=== PATIENT | male | born 1940 | race Caucasian/White ===

== ENCOUNTER 2017-06-06 01:44 | Inpatient (IN) | payer MEDICARE ==
[~2017-06-06] VITALS: Ht 172.7 cm; Wt 73.9 kg
[~2017-06-06 01:44] MED LIST: CALC667C4 PO; CALCIUM PO; CYAN10009 PO; GLIP5TAB12 PO; LOVA40TA73 PO; NEPVIT PO; TAMS0.4C31 PO; TEMA15CA PO
[2017-06-06 02:55] LABS: BASOPHILS % 0.6 % (0.0-2.0); EOSINOPHILS % 1.5 % (0.0-5.0); HEMATOCRIT. 35.3 % (42.0-52.0); HEMOGLOBIN. 12.2 g/dL (14.0-18.0); LYMPHOCYTES % 9.7 % (20.0-50.0); MEAN CORPUSCULAR HEMOGLOBIN 32.9 pg (28.0-32.0); MEAN CORPUSCULAR VOLUME 95.4 fL (80.0-94.0); MEAN PLATELET VOLUME 9.5 fl (7.4-10.4); MONOCYTES % 11.2 % (2.0-8.0); PLATELET 177 x1000/uL (130-400); RED CELL DISTRIBUTION WIDTH 12.5 % (11.6-14.6)
[2017-06-06 02:59] LABS: INR 1.1; PROTHROMBIN TIME 11.2 sec
[2017-06-06 03:10] LABS: CARBON DIOXIDE 33 mEq/L (21-32); CHLORIDE 102 mEq/L (98-107); TROPONIN I 0.06 ng/mL (0.00-0.04)
[2017-06-06] MEDS ORDERED: CLONIDINE 0.1MG TABLET PO PRN ×2 (07:15→22:15)
[2017-06-06] MEDS ORDERED: DOCUSATE SODIUM 100MG CAPSULE PO PRN (07:15)
[2017-06-06] MEDS ORDERED: LORAZEPAM 2MG/ML CPJ IV PRN (07:15)
[2017-06-06] MEDS ORDERED: ENOXAPARIN 40MG/0.4ML SYR SUBCUT SCH (07:15)
[2017-06-06] MEDS ORDERED: IPRATROPIUM/ALBUTEROL 0.5-3(2.5)MG/3ML NEB INH PRN (07:15)
[2017-06-06] MEDS ORDERED: HYDROCODONE/ACETAMINOPHEN 5/325MG TABLET PO PRN (07:15)
[2017-06-06] MEDS ORDERED: GUAIFENESIN 200MG/10ML SUGAR FREE UDC PO PRN (07:15)
[2017-06-06] MEDS ORDERED: HYDROMORPHONE HCL/PF 2MG/ML CPJ IV PRN (07:15)
[2017-06-06] MEDS ORDERED: MAGNESIUM/ALUMINUM HYDROXIDE/SIMETHICONE 30ML UDC PO PRN (07:15)
[2017-06-06] MEDS ORDERED: DIPHENHYDRAMINE 50MG/ML VIAL IV PRN (07:15)
[2017-06-06] MEDS ORDERED: ACETAMINOPHEN 325MG TABLET PO PRN (07:15)
[2017-06-06] MEDS ORDERED: ONDANSETRON HCL 4MG/2ML VIAL IV PRN (07:15)
[2017-06-06] MEDS ORDERED: NA PHOS,M-B/NA PHOS,DI-BA ENEMA 118ML PR PRN (07:15)
[2017-06-06 13:00] VITALS: BP 148/78
[2017-06-06] MEDS: LOSARTAN POTASSIUM 50 MG TABLET PO SCH (14:30)
[2017-06-06] MEDS: ASPIRIN 81MG EC TABLET PO SCH (14:30)
[2017-06-06] MEDS: ENOXAPARIN 30MG/0.3ML SYR SUBCUT SCH (15:00)
[2017-06-06 15:51] LABS: CREATINE KINASE MB FRACTION 0.9 ng/mL (0.5-3.6); TROPONIN I 0.07 ng/mL (0.00-0.04)
[2017-06-06 16:00] VITALS: BP 145/56
[2017-06-06] MEDS ORDERED: AMLO10TA80 PO (17:59)
[2017-06-06] MEDS ORDERED: CLON0.1T PO (17:59)
[2017-06-06] MEDS ORDERED: ACET-2178 PO (17:59)
[2017-06-06] MEDS ORDERED: CLONIDINE 0.1MG TABLET PO SCH (18:00)
[2017-06-06] MEDS ORDERED: CALCIUM PO SCH (18:10)
[2017-06-06 20:00] VITALS: BP 139/71
[2017-06-06] MEDS ORDERED: TEMAZEPAM 15MG CAPSULE PO PRN (21:00)
[2017-06-06] MEDS: TAMSULOSIN HCL 0.4MG SR CAPSULE PO SCH (21:31)
[2017-06-06] MEDS: CARVEDILOL 3.125 MG TABLET PO SCH (21:32)
[2017-06-06 23:38] LABS: CREATINE KINASE MB FRACTION 0.9 ng/mL (0.5-3.6); TROPONIN I 0.06 ng/mL (0.00-0.04)
[2017-06-07] VITALS: BP 147/68
[2017-06-07 04:00] VITALS: BP 150/79
[2017-06-07 06:20] LABS: BASOPHILS % 0.7 % (0.0-2.0); EOSINOPHILS % 3.3 % (0.0-5.0); HEMATOCRIT. 39.6 % (42.0-52.0); HEMOGLOBIN. 13.3 g/dL (14.0-18.0); LYMPHOCYTES % 18.2 % (20.0-50.0); MEAN CORPUSCULAR HEMOGLOBIN 32.4 pg (28.0-32.0); MEAN CORPUSCULAR VOLUME 96.2 fL (80.0-94.0); MEAN PLATELET VOLUME 10.2 fl (7.4-10.4); MONOCYTES % 10.1 % (2.0-8.0); NEUTROPHILS % 67.7 % (40.0-76.0); PLATELET 201 x1000/uL (130-400); RED BLOOD CELL COUNT 4.11 mill/uL (4.7-6.1); RED CELL DISTRIBUTION WIDTH 12.6 % (11.6-14.6)
[2017-06-07 08:00] VITALS: BP 150/73
[2017-06-07 08:15] LABS: CHLORIDE 102 mEq/L (98-107)
[2017-06-07 08:50] LABS: CARBON DIOXIDE 25 mEq/L (21-32); CREATINE KINASE 52 IU/L (39-308); CREATINE KINASE MB FRACTION 1.3 ng/mL (0.5-3.6); HDL CHOLESTEROL 41 mg/dL (40-59); LDL CHOLESTEROL 105 mg/dL (5-100)
[2017-06-07] MEDS ORDERED: CALCIUM ACETATE 667MG CAPSULE PO SCH (09:00)
[2017-06-07] MEDS: AMLODIPINE 10MG TABLET PO SCH (09:12)
[2017-06-07] MEDS: CALCIUM ACETATE 667MG CAPSULE PO SCH ×3 (09:12→21:50)
[2017-06-07] MEDS: LOSARTAN POTASSIUM 50 MG TABLET PO SCH (09:12)
[2017-06-07] MEDS: FOLIC ACID/VITAMIN B COMP W-C TABLET PO SCH (09:12)
[2017-06-07] MEDS: CARVEDILOL 3.125 MG TABLET PO SCH ×2 (09:13→21:52)
[2017-06-07] MEDS: ASPIRIN 81MG EC TABLET PO SCH (09:13)
[2017-06-07] MEDS: CYANOCOBALAMIN 1000MCG TABLET PO SCH (09:13)
[2017-06-07 12:00] VITALS: BP 134/69
[2017-06-07] MEDS ORDERED: REGADENOSON 0.4 MG/5 ML IV ONE (14:30)
[2017-06-07 16:00] VITALS: BP 136/70
[2017-06-07] MEDS: ENOXAPARIN 30MG/0.3ML SYR SUBCUT SCH (17:03)
[2017-06-07 20:00] VITALS: BP_SYST 113; BP_SYST 125; BP_DIAS 45; BP_DIAS 62
[2017-06-07] MEDS: TAMSULOSIN HCL 0.4MG SR CAPSULE PO SCH (21:51)
[2017-06-08] VITALS: BP 125/55
[2017-06-08 04:00] VITALS: BP 130/63
[2017-06-08 07:27] LABS: BASOPHILS % 0.7 % (0.0-2.0); EOSINOPHILS % 4.5 % (0.0-5.0); HEMATOCRIT. 41.2 % (42.0-52.0); HEMOGLOBIN. 13.8 g/dL (14.0-18.0); LYMPHOCYTES % 24.5 % (20.0-50.0); MEAN CORPUSCULAR HEMOGLOBIN 32.4 pg (28.0-32.0); MEAN CORPUSCULAR VOLUME 96.4 fL (80.0-94.0); NEUTROPHILS % 60.3 % (40.0-76.0); PLATELET 214 x1000/uL (130-400); RED BLOOD CELL COUNT 4.27 mill/uL (4.7-6.1); RED CELL DISTRIBUTION WIDTH 12.7 % (11.6-14.6)
[2017-06-08] MEDS: LOSARTAN POTASSIUM 50 MG TABLET PO SCH (07:50)
[2017-06-08] MEDS: CYANOCOBALAMIN 1000MCG TABLET PO SCH (07:50)
[2017-06-08] MEDS: FOLIC ACID/VITAMIN B COMP W-C TABLET PO SCH (07:50)
[2017-06-08] MEDS: CALCIUM ACETATE 667MG CAPSULE PO SCH ×3 (07:50→18:26)
[2017-06-08] MEDS: ASPIRIN 81MG EC TABLET PO SCH (07:50)
[2017-06-08] MEDS: CARVEDILOL 3.125 MG TABLET PO SCH ×2 (07:51→22:50)
[2017-06-08] MEDS: AMLODIPINE 10MG TABLET PO SCH (07:51)
[2017-06-08 08:00] VITALS: BP 115/62
[2017-06-08 12:00] VITALS: BP 114/66
[2017-06-08 16:00] VITALS: BP 121/61
[2017-06-08] MEDS: ENOXAPARIN 30MG/0.3ML SYR SUBCUT SCH (16:03)
[2017-06-08 20:00] VITALS: BP 129/81
[2017-06-08] MEDS: TAMSULOSIN HCL 0.4MG SR CAPSULE PO SCH (22:49)
[2017-06-09] VITALS: BP 138/71
[2017-06-09 04:00] VITALS: BP 108/80
[2017-06-09 08:00] VITALS: BP 132/65
[2017-06-09] MEDS: AMLODIPINE 10MG TABLET PO SCH (08:48)
[2017-06-09] MEDS: FOLIC ACID/VITAMIN B COMP W-C TABLET PO SCH (08:48)
[2017-06-09] MEDS: ASPIRIN 81MG EC TABLET PO SCH (08:48)
[2017-06-09] MEDS: LOSARTAN POTASSIUM 50 MG TABLET PO SCH (08:48)
[2017-06-09] MEDS: CARVEDILOL 3.125 MG TABLET PO SCH (08:48)
[2017-06-09] MEDS: CYANOCOBALAMIN 1000MCG TABLET PO SCH (08:50)
[2017-06-09] MEDS: CALCIUM ACETATE 667MG CAPSULE PO SCH ×2 (08:50→12:12)
[2017-06-09 12:02] VITALS: BP 137/63
[2017-06-09] MEDS ORDERED: REGADENOSON 0.4 MG/5 ML IV ONE (13:36)
[2017-06-09] MEDS: ENOXAPARIN 30MG/0.3ML SYR SUBCUT SCH (14:33)
[2017-06-09 15:08] VITALS: BP 137/63
== END 2017-06-09 16:05 | disposition home or self-care (01) | DRG 291 ==
LOC: ER 01:44 → 7WST 04:11 → EDBEDREQTM 05:45 → EDBEDREQ 05:45 → ENRESERV 10:58
PROVIDERS: ADMIT Internal Medicine; ATTEND Internal Medicine
PROC: 5A1D00Z (ICD-10-PCS; principal; 2017-06-07)
DX: I13.2 Hypertensive heart and chronic kidney disease with heart failure and with stage 5 chronic kidney disease, or end stage renal disease (principal); I50.23 Acute on chronic systolic (congestive) heart failure; N18.6 End stage renal disease; J96.01 Acute respiratory failure with hypoxia; E46 Unspecified protein-calorie malnutrition; I25.10 Atherosclerotic heart disease of native coronary artery without angina pectoris; D64.9 Anemia, unspecified; E78.5 Hyperlipidemia, unspecified; N40.0 Benign prostatic hyperplasia without lower urinary tract symptoms; E11.22 Type 2 diabetes mellitus with diabetic chronic kidney disease; K21.9 Gastro-esophageal reflux disease without esophagitis; J45.909 Unspecified asthma, uncomplicated; I25.5 Ischemic cardiomyopathy; Z79.84 Long term (current) use of oral hypoglycemic drugs; Z79.899 Other long term (current) drug therapy; Z95.1 Presence of aortocoronary bypass graft; Z68.24 Body mass index [BMI] 24.0-24.9, adult; Z99.2 Dependence on renal dialysis; Z86.718 Personal history of other venous thrombosis and embolism
CPT/HCPCS: 36415; 71010; 78452; 80048; 80053; 80061; 82550; 82553; 83036; 83880; 84439; 84443; 84481; 84484; 85025; 85379; 85610; 93005; 93017; 93306; 93970; 94640; 99285; A9500; J1650; J2785; J7030; J7620

== ENCOUNTER 2018-03-17 12:48 | Inpatient (IN) | payer MEDICARE ==
[~2018-03-17] VITALS: Ht 172.7 cm; Wt 76.2 kg
[~2018-03-17 12:48] MED LIST changes: +ACET-2178 PO; +AMLO10TA80 PO; +CLON0.1T PO; -LOVA40TA73 PO
[2018-03-17 13:46] LABS: BASOPHILS % 0.8 % (0.0-2.0); EOSINOPHILS % 1.4 % (0.0-5.0); HEMATOCRIT. 44.9 % (42.0-52.0); HEMOGLOBIN. 15.3 g/dL (14.0-18.0); LYMPHOCYTES % 15.1 % (20.0-50.0); MEAN CORPUSCULAR HEMOGLOBIN 33.8 pg (28.0-32.0); MEAN CORPUSCULAR VOLUME 98.8 fL (80.0-94.0); MEAN PLATELET VOLUME 9.9 fl (7.4-10.4); MONOCYTES % 7.2 % (2.0-8.0); NEUTROPHILS % 75.5 % (40.0-76.0); PLATELET 200 x1000/uL (130-400); RED BLOOD CELL COUNT 4.55 mill/uL (4.7-6.1); RED CELL DISTRIBUTION WIDTH 12.9 % (11.6-14.6)
[2018-03-17 13:51] LABS: CHLORIDE 96 mEq/L (98-107)
[2018-03-17 13:52] LABS: PROTHROMBIN TIME 10.9 sec (9.4-11.6)
[2018-03-17] MEDS ORDERED: DEXTROSE 50% WATER 50ML SYRINGE IV ONE (14:15)
[2018-03-17] MEDS ORDERED: ALBUTEROL (0.083%) 2.5MG/3ML NEB HHN ONE (14:15)
[2018-03-17] MEDS ORDERED: SODIUM BICARBONATE 8.4% 1 MEQ/ML 50ML SYR IV ONE (14:15)
[2018-03-17] MEDS ORDERED: CALCIUM CHLORIDE 1GM/10ML SYR IV ONE (14:15)
[2018-03-17] MEDS ORDERED: INSULIN REGULAR (HUMULIN R) 300UNITS/3ML IV ONE (14:15)
[2018-03-17] MEDS ORDERED: SODIUM BICARBONATE 4% (2.4MEQ) 5ML VIAL IV ONE (15:09)
[2018-03-17] MEDS ORDERED: LIDOCAINE HCL/PF 1% 10 MG/ML 5ML VIAL ONE (15:09)
[2018-03-17] MEDS ORDERED: ONDANSETRON HCL 4MG/2ML VIAL IV PRN (19:30)
[2018-03-17] MEDS ORDERED: MAGNESIUM/ALUMINUM HYDROXIDE/SIMETHICONE 30ML UDC PO PRN (19:30)
[2018-03-17] MEDS ORDERED: IPRATROPIUM/ALBUTEROL 0.5-3(2.5)MG/3ML NEB INH PRN (19:30)
[2018-03-17] MEDS ORDERED: ACETAMINOPHEN 325MG TABLET PO PRN (19:30)
[2018-03-17] MEDS ORDERED: LORAZEPAM 2MG/ML CPJ IV PRN (19:30)
[2018-03-17] MEDS ORDERED: CLONIDINE 0.1MG TABLET PO PRN (19:30)
[2018-03-17] MEDS ORDERED: GUAIFENESIN 200MG/10ML SUGAR FREE UDC PO PRN (19:30)
[2018-03-17] MEDS ORDERED: HYDROCODONE/ACETAMINOPHEN 5/325MG TABLET PO PRN (19:30)
[2018-03-17] MEDS ORDERED: DOCUSATE SODIUM 100MG CAPSULE PO PRN (19:30)
[2018-03-17] MEDS ORDERED: NA PHOS,M-B/NA PHOS,DI-BA ENEMA 118ML PR PRN (20:30)
[2018-03-17 22:00] VITALS: BP 184/85
[2018-03-18] VITALS (20 sets, daily range): BP systolic 135–212; BP diastolic 52–141
[2018-03-18] MEDS ORDERED: DEXTROSE 50% WATER 50ML SYRINGE IV PRN (05:45)
[2018-03-18] MEDS: BLOOD SUGAR DIAGNOSTIC STRIP TEST SCH ×4 (07:01→20:29)
[2018-03-18] MEDS: INSULIN LISPRO 100 UNITS/ML SUBCUT SCH ×4 (07:01→20:29)
[2018-03-18 07:30] LABS: BASOPHILS % 0.6 % (0.0-2.0); EOSINOPHILS % 1.2 % (0.0-5.0); HEMATOCRIT. 42.8 % (42.0-52.0); HEMOGLOBIN. 14.2 g/dL (14.0-18.0); LYMPHOCYTES % 17.6 % (20.0-50.0); MEAN CORPUSCULAR HEMOGLOBIN 32.8 pg (28.0-32.0); MEAN CORPUSCULAR VOLUME 98.8 fL (80.0-94.0); MEAN PLATELET VOLUME 10.5 fl (7.4-10.4); NEUTROPHILS % 68.6 % (40.0-76.0); PLATELET 173 x1000/uL (130-400); RED BLOOD CELL COUNT 4.33 mill/uL (4.7-6.1); RED CELL DISTRIBUTION WIDTH 12.9 % (11.6-14.6)
[2018-03-18 07:37] LABS: CHLORIDE 99 mEq/L (98-107)
[2018-03-18 07:44] LABS: LDL CHOLESTEROL 76 mg/dL (5-100)
[2018-03-18 07:46] LABS: HDL CHOLESTEROL 39 mg/dL (40-59); T4 FREE 0.92 ng/dL (0.76-1.46)
[2018-03-18] MEDS ORDERED: SODIUM BICARBONATE 4% (2.4MEQ) 5ML VIAL IV ONE (08:15)
[2018-03-18] MEDS ORDERED: LIDOCAINE HCL/PF 1% 10 MG/ML 5ML VIAL ONE (08:15)
[2018-03-18] MEDS ORDERED: HEPARIN 1000 UNITS/ML 10ML ONE (08:16)
[2018-03-18] MEDS ORDERED: CEFAZOLIN 1000MG PREMIX 50 ML IV ONE ×2 (08:35→10:00)
[2018-03-18] MEDS ORDERED: FENTANYL CITRATE/PF 50MCG/ML 2ML VIAL ONE (08:36)
[2018-03-18] MEDS ORDERED: IOHEXOL-300 100 ML BOTTLE ONE (09:34)
[2018-03-18] MEDS ORDERED: FENTANYL CITRATE/PF 50MCG/ML 2ML VIAL IV ONE (10:30)
[2018-03-18] MEDS: ENOXAPARIN 30MG/0.3ML SYR SUBCUT SCH (12:42)
[2018-03-19] VITALS: BP 145/62
[2018-03-19 04:00] VITALS: BP 158/69
[2018-03-19] MEDS: BLOOD SUGAR DIAGNOSTIC STRIP TEST SCH ×2 (06:37→11:13)
[2018-03-19] MEDS: INSULIN LISPRO 100 UNITS/ML SUBCUT SCH ×2 (06:37→12:11)
[2018-03-19 07:43] LABS: BASOPHILS % 0.7 % (0.0-2.0); EOSINOPHILS % 1.1 % (0.0-5.0); HEMATOCRIT. 42.3 % (42.0-52.0); LYMPHOCYTES % 24.6 % (20.0-50.0); MEAN CORPUSCULAR HEMOGLOBIN 32.8 pg (28.0-32.0); MEAN CORPUSCULAR VOLUME 99.3 fL (80.0-94.0); MEAN PLATELET VOLUME 10.8 fl (7.4-10.4); MONOCYTES % 14.1 % (2.0-8.0); NEUTROPHILS % 59.5 % (40.0-76.0); PLATELET 162 x1000/uL (130-400); RED BLOOD CELL COUNT 4.26 mill/uL (4.7-6.1); RED CELL DISTRIBUTION WIDTH 13.2 % (11.6-14.6)
[2018-03-19 08:00] VITALS: BP 144/66
[2018-03-19] MEDS: ENOXAPARIN 30MG/0.3ML SYR SUBCUT SCH (08:08)
[2018-03-19 12:00] VITALS: BP 140/65
[2018-03-19 14:20] LABS: T4 FREE 0.91 ng/dL (0.76-1.46)
[2018-03-19 16:40] VITALS: BP 140/69
[2018-03-19 16:43] LABS: CREATINE KINASE MB FRACTION 1.5 ng/mL (0.5-3.6)
== END 2018-03-19 18:05 | disposition home or self-care (01) | DRG 252 ==
LOC: ER 12:48 → 8WST 15:26 → ENRESERV 18:50
PROVIDERS: ADMIT Internal Medicine; ATTEND Internal Medicine
PROC: 5A1D70Z Performance of Urinary Filtration, Intermittent, Less than 6 Hours Per Day (ICD-10-PCS; principal; 2018-03-17)
PROC: 02HV33Z Insertion of Infusion Device into Superior Vena Cava, Percutaneous Approach (ICD-10-PCS; 2018-03-17)
PROC: B548ZZA Ultrasonography of Superior Vena Cava, Guidance (ICD-10-PCS; 2018-03-17)
PROC: B5181ZA Fluoroscopy of Superior Vena Cava using Low Osmolar Contrast, Guidance (ICD-10-PCS; 2018-03-17)
PROC: 03C83ZZ Extirpation of Matter from Left Brachial Artery, Percutaneous Approach (ICD-10-PCS; 2018-03-18)
PROC: 03783DZ Dilation of Left Brachial Artery with Intraluminal Device, Percutaneous Approach (ICD-10-PCS; 2018-03-18)
PROC: 5A1D70Z Performance of Urinary Filtration, Intermittent, Less than 6 Hours Per Day (ICD-10-PCS; 2018-03-18)
PROC: B51N1ZZ Fluoroscopy of Left Upper Extremity Veins using Low Osmolar Contrast (ICD-10-PCS; 2018-03-18)
PROC: B31N1ZZ Fluoroscopy of Other Upper Arteries using Low Osmolar Contrast (ICD-10-PCS; 2018-03-18)
PROC: B51W1ZZ Fluoroscopy of Dialysis Shunt/Fistula using Low Osmolar Contrast (ICD-10-PCS; 2018-03-18)
DX: T82.818A Embolism due to vascular prosthetic devices, implants and grafts, initial encounter (principal); N18.6 End stage renal disease; J96.00 Acute respiratory failure, unspecified whether with hypoxia or hypercapnia; I13.2 Hypertensive heart and chronic kidney disease with heart failure and with stage 5 chronic kidney disease, or end stage renal disease; E46 Unspecified protein-calorie malnutrition; E11.22 Type 2 diabetes mellitus with diabetic chronic kidney disease; I42.9 Cardiomyopathy, unspecified; E87.5 Hyperkalemia; I50.23 Acute on chronic systolic (congestive) heart failure; E78.5 Hyperlipidemia, unspecified; I25.10 Atherosclerotic heart disease of native coronary artery without angina pectoris; K21.9 Gastro-esophageal reflux disease without esophagitis; N40.0 Benign prostatic hyperplasia without lower urinary tract symptoms; Y83.2 Surgical operation with anastomosis, bypass or graft as the cause of abnormal reaction of the patient, or of later complication, without mention of misadventure at the time of the procedure; Z79.84 Long term (current) use of oral hypoglycemic drugs; Z79.899 Other long term (current) drug therapy; Z86.718 Personal history of other venous thrombosis and embolism; Z99.2 Dependence on renal dialysis; Z86.73 Personal history of transient ischemic attack (TIA), and cerebral infarction without residual deficits; I25.2 Old myocardial infarction; Z95.1 Presence of aortocoronary bypass graft; Z95.5 Presence of coronary angioplasty implant and graft; Z83.3 Family history of diabetes mellitus; Z82.3 Family history of stroke; Z82.49 Family history of ischemic heart disease and other diseases of the circulatory system; Z68.25 Body mass index [BMI] 25.0-25.9, adult
CPT/HCPCS: 36415; 36556; 36905; 36907; 71045; 76937; 77001; 80048; 80053; 80061; 82550; 82553; 82962; 83036; 83880; 84439; 84443; 84484; 85025; 85379; 85610; 93005; 94640; C1725; C1752; C1766; C1769; C1887; C2630; J0690; J1642; J1644; J1650; J1815; J2060; J3010; J3490; J7030; J7050; J7611; Q9967

== ENCOUNTER 2018-03-23 17:53 | Inpatient (IN) | payer BC, MEDICARE ==
[~2018-03-23] VITALS: Ht 165.1 cm; Wt 95.7 kg
[2018-03-23] MEDS ORDERED: ASPIRIN 81MG TABLET PO STA (18:32)
[2018-03-23 19:10] LABS: BASOPHILS % 0.8 % (0.0-2.0); EOSINOPHILS % 1.1 % (0.0-5.0); HEMATOCRIT. 40.7 % (42.0-52.0); HEMOGLOBIN. 13.9 g/dL (14.0-18.0); LYMPHOCYTES % 15.7 % (20.0-50.0); MEAN CORPUSCULAR HEMOGLOBIN 33.8 pg (28.0-32.0); MEAN PLATELET VOLUME 10.3 fl (7.4-10.4); MONOCYTES % 8.5 % (2.0-8.0); NEUTROPHILS % 73.9 % (40.0-76.0); PLATELET 164 x1000/uL (130-400); RED BLOOD CELL COUNT 4.11 mill/uL (4.7-6.1); RED CELL DISTRIBUTION WIDTH 13.2 % (11.6-14.6)
[2018-03-23 19:15] LABS: CHLORIDE 95 mEq/L (98-107)
[2018-03-23 19:19] LABS: PARTIAL THROMBOPLASTIN TIME 25.7 sec (23.4-31.0); PROTHROMBIN TIME 10.5 sec (9.4-11.6)
[2018-03-23] MEDS ORDERED: INSULIN REGULAR (HUMULIN R) 300UNITS/3ML IV ONE (19:45)
[2018-03-23] MEDS ORDERED: SODIUM POLYSTYRENE SULFONATE 15 G/60 ML BOT PO ONE (19:45)
[2018-03-23] MEDS ORDERED: ALBUTEROL (0.083%) 2.5MG/3ML NEB HHN ONE (19:45)
[2018-03-23] MEDS ORDERED: SODIUM BICARBONATE 8.4% 1 MEQ/ML 50ML SYR IV ONE (19:45)
[2018-03-23] MEDS ORDERED: DEXTROSE 50% WATER 50ML SYRINGE IV ONE (19:45)
[2018-03-23] MEDS ORDERED: CALCIUM GLUCONATE 1,000 MG in DEXTROSE 5% WATER 50 ML IV ONE (20:30)
[2018-03-23] MEDS ORDERED: CALCIUM GLUCONATE 1,000 MG in DEXTROSE 5% WATER 50 ML IV SCH (21:00)
[2018-03-23 22:30] VITALS: BP 180/74
[2018-03-23 23:40] VITALS: BP 158/66
[2018-03-24 00:07] VITALS: BP 158/66
[2018-03-24] MEDS ORDERED: ONDANSETRON HCL 4MG/2ML VIAL IV PRN ×2 (00:45→08:00)
[2018-03-24] MEDS ORDERED: IPRATROPIUM/ALBUTEROL 0.5-3(2.5)MG/3ML NEB INH PRN (00:45)
[2018-03-24] MEDS ORDERED: ACETAMINOPHEN 325MG TABLET PO PRN ×2 (00:45→08:00)
[2018-03-24] MEDS ORDERED: CLONIDINE 0.1MG TABLET PO PRN ×2 (00:45→08:00)
[2018-03-24] MEDS ORDERED: HYDROCODONE/ACETAMINOPHEN 5/325MG TABLET PO PRN ×2 (00:45→08:00)
[2018-03-24] MEDS: TEMAZEPAM 15MG CAPSULE PO PRN ×2 (01:53→22:02)
[2018-03-24] MEDS ORDERED: DEXTROSE 50% WATER 50ML SYRINGE IV PRN (02:30)
[2018-03-24 03:58] VITALS: BP 118/46
[2018-03-24] MEDS: BLOOD SUGAR DIAGNOSTIC STRIP TEST SCH ×4 (06:30→20:43)
[2018-03-24 07:29] LABS: BASOPHILS % 0.6 % (0.0-2.0); HEMATOCRIT. 40.5 % (42.0-52.0); HEMOGLOBIN. 13.9 g/dL (14.0-18.0); LYMPHOCYTES % 22.2 % (20.0-50.0); MEAN CORPUSCULAR HEMOGLOBIN 33.7 pg (28.0-32.0); MEAN CORPUSCULAR VOLUME 98.6 fL (80.0-94.0); MEAN PLATELET VOLUME 10.7 fl (7.4-10.4); MONOCYTES % 11.7 % (2.0-8.0); NEUTROPHILS % 64.5 % (40.0-76.0); PLATELET 180 x1000/uL (130-400); RED BLOOD CELL COUNT 4.11 mill/uL (4.7-6.1); RED CELL DISTRIBUTION WIDTH 13.4 % (11.6-14.6)
[2018-03-24] MEDS: INSULIN LISPRO 100 UNITS/ML SUBCUT SCH ×4 (07:50→20:44)
[2018-03-24 08:00] VITALS: BP 160/64
[2018-03-24] MEDS ORDERED: LORAZEPAM 0.5MG TABLET PO PRN (08:00)
[2018-03-24] MEDS ORDERED: ACETAMINOPHEN 650MG/20.3ML UDC GT PRN (08:00)
[2018-03-24] MEDS ORDERED: ACETAMINOPHEN 650MG SUPP PR PRN (08:00)
[2018-03-24] MEDS ORDERED: GUAIFENESIN 200MG/10ML SUGAR FREE UDC PO PRN (08:00)
[2018-03-24] MEDS ORDERED: MAGNESIUM/ALUMINUM HYDROXIDE/SIMETHICONE 30ML UDC PO PRN (08:00)
[2018-03-24] MEDS ORDERED: DOCUSATE SODIUM 100MG CAPSULE PO PRN (08:00)
[2018-03-24] MEDS ORDERED: HYDROCODONE/ACETAMINOPHEN 10/325MG TABLET PO PRN (08:00)
[2018-03-24] MEDS ORDERED: DIPHENHYDRAMINE 50MG/ML VIAL IV PRN (08:00)
[2018-03-24] MEDS ORDERED: NA PHOS,M-B/NA PHOS,DI-BA ENEMA 118ML PR PRN (08:00)
[2018-03-24 08:13] LABS: *AMPHETAMINES SCREEN URINE NEGATIVE (NEGATIVE); *BARBITURATES SCREEN URINE NEGATIVE (NEGATIVE); *BENZODIAZEPINES SCREEN URINE NEGATIVE (NEGATIVE); *COCAINE SCREEN URINE NEGATIVE (NEGATIVE)
[2018-03-24 08:18] LABS: METHADONE URINE SCREEN NEGATIVE (NEGATIVE); OPIATES URINE SCREEN NEGATIVE (NEGATIVE)
[2018-03-24 08:19] LABS: CANNABINOID URINE SCREEN NEGATIVE (NEGATIVE); PHENCYCLIDINE URINE SCREEN NEGATIVE (NEGATIVE)
[2018-03-24 08:29] LABS: CREATINE KINASE MB FRACTION 1.8 ng/mL (0.5-3.6)
[2018-03-24] MEDS: CALCIUM ACETATE 667MG CAPSULE PO SCH ×3 (08:51→17:24)
[2018-03-24] MEDS: CYANOCOBALAMIN 1000MCG TABLET PO SCH (08:51)
[2018-03-24] MEDS: FOLIC ACID/VITAMIN B COMP W-C TABLET PO SCH (08:52)
[2018-03-24] MEDS: GLIPIZIDE 5MG TABLET PO SCH (08:52)
[2018-03-24] MEDS: AMLODIPINE 10MG TABLET PO SCH (08:52)
[2018-03-24 09:38] LABS: CLARITY URINE CLEAR (CLEAR); COLOR URINE YELLOW (YELLOW); KETONES URINE NEGATIVE (NEGATIVE); LEUKOCYTE ESTERASE URINE NEGATIVE (NEGATIVE); NITRITE URINE NEGATIVE (NEGATIVE); OCCULT BLOOD URINE NEGATIVE (NEGATIVE); PH URINE >=9.0 (4.5-8.0); PROTEIN URINE 2+ (NEGATIVE); SPECIFIC GRAVITY URINE 1.014 (1.005-1.030); UROBILINOGEN URINE 0.2 E.U./dL (0.2-1.0)
[2018-03-24 12:00] VITALS: BP 112/70
[2018-03-24] MEDS: CARVEDILOL 3.125 MG TABLET PO SCH ×2 (13:21→22:12)
[2018-03-24 15:58] LABS: CREATINE KINASE MB FRACTION 1.6 ng/mL (0.5-3.6)
[2018-03-24 16:00] VITALS: BP 135/60
[2018-03-24 16:24] LABS: *COCAINE SCREEN URINE NEGATIVE (NEGATIVE)
[2018-03-24 16:25] LABS: *AMPHETAMINES SCREEN URINE NEGATIVE (NEGATIVE); *BARBITURATES SCREEN URINE NEGATIVE (NEGATIVE); CANNABINOID URINE SCREEN NEGATIVE (NEGATIVE)
[2018-03-24 16:26] LABS: *BENZODIAZEPINES SCREEN URINE NEGATIVE (NEGATIVE); METHADONE URINE SCREEN NEGATIVE (NEGATIVE); OPIATES URINE SCREEN NEGATIVE (NEGATIVE)
[2018-03-24 16:27] LABS: PHENCYCLIDINE URINE SCREEN NEGATIVE (NEGATIVE)
[2018-03-24] MEDS: ASPIRIN 81MG EC TABLET PO SCH (17:24)
[2018-03-24 20:00] VITALS: BP 137/67
[2018-03-24] MEDS ORDERED: TAMSULOSIN HCL 0.4MG SR CAPSULE PO SCH (21:00)
[2018-03-24] MEDS ORDERED: ATORVASTATIN CALCIUM 20MG TABLET PO SCH (21:00)
[2018-03-25 00:01] VITALS: BP 107/68
[2018-03-25 04:00] VITALS: BP 140/53
[2018-03-25] MEDS: BLOOD SUGAR DIAGNOSTIC STRIP TEST SCH ×3 (06:37→17:22)
[2018-03-25] MEDS: INSULIN LISPRO 100 UNITS/ML SUBCUT SCH ×3 (07:50→17:25)
[2018-03-25 08:20] VITALS: BP 128/56
[2018-03-25] MEDS: GLIPIZIDE 5MG TABLET PO SCH (08:22)
[2018-03-25] MEDS: CALCIUM ACETATE 667MG CAPSULE PO SCH ×3 (08:22→17:23)
[2018-03-25] MEDS: CYANOCOBALAMIN 1000MCG TABLET PO SCH (08:22)
[2018-03-25] MEDS: FOLIC ACID/VITAMIN B COMP W-C TABLET PO SCH (08:22)
[2018-03-25] MEDS: AMLODIPINE 10MG TABLET PO SCH (08:22)
[2018-03-25] MEDS: ASPIRIN 81MG EC TABLET PO SCH ×2 (08:22→17:23)
[2018-03-25] MEDS: CARVEDILOL 3.125 MG TABLET PO SCH (08:22)
[2018-03-25 09:51] LABS: BASOPHILS % 0.5 % (0.0-2.0); EOSINOPHILS % 1.7 % (0.0-5.0); HEMOGLOBIN. 13.6 g/dL (14.0-18.0); LYMPHOCYTES % 21.3 % (20.0-50.0); MEAN CORPUSCULAR HEMOGLOBIN 33.1 pg (28.0-32.0); MEAN CORPUSCULAR VOLUME 99.7 fL (80.0-94.0); MEAN PLATELET VOLUME 10.7 fl (7.4-10.4); MONOCYTES % 10.9 % (2.0-8.0); NEUTROPHILS % 65.6 % (40.0-76.0); PLATELET 178 x1000/uL (130-400); RED BLOOD CELL COUNT 4.11 mill/uL (4.7-6.1); RED CELL DISTRIBUTION WIDTH 13.5 % (11.6-14.6)
[2018-03-25 11:14] LABS: T4 FREE 0.91 ng/dL (0.76-1.46)
[2018-03-25 11:54] VITALS: BP 154/63
[2018-03-25 16:25] VITALS: BP 146/58
[2018-03-25] MEDS ORDERED: ASPI-1158 PO (17:42)
[2018-03-25] MEDS ORDERED: COR3 PO (17:43)
[2018-03-25] MEDS ORDERED: SILVER SULFADIAZINE 1% CREAM 50GM TOP SCH (21:00)
== END 2018-03-25 18:48 | disposition home or self-care (01) | DRG 291 ==
LOC: ER 17:53 → EDBEDREQ 18:36 → EDBEDREQTM 20:42 → 6WST 20:42 → ENRESERV 20:57
PROVIDERS: ADMIT Internal Medicine; ATTEND Internal Medicine
DX: I13.2 Hypertensive heart and chronic kidney disease with heart failure and with stage 5 chronic kidney disease, or end stage renal disease (principal); I50.43 Acute on chronic combined systolic (congestive) and diastolic (congestive) heart failure; E46 Unspecified protein-calorie malnutrition; E11.21 Type 2 diabetes mellitus with diabetic nephropathy; E11.51 Type 2 diabetes mellitus with diabetic peripheral angiopathy without gangrene; N18.6 End stage renal disease; E87.1 Hypo-osmolality and hyponatremia; Z99.2 Dependence on renal dialysis; E87.5 Hyperkalemia; E11.22 Type 2 diabetes mellitus with diabetic chronic kidney disease; I25.5 Ischemic cardiomyopathy; I65.21 Occlusion and stenosis of right carotid artery; I25.10 Atherosclerotic heart disease of native coronary artery without angina pectoris; E78.00 Pure hypercholesterolemia, unspecified; E78.5 Hyperlipidemia, unspecified; I42.0 Dilated cardiomyopathy; N40.0 Benign prostatic hyperplasia without lower urinary tract symptoms; Z87.891 Personal history of nicotine dependence; Z95.1 Presence of aortocoronary bypass graft; I25.2 Old myocardial infarction
CPT/HCPCS: 36415; 71045; 80048; 80053; 80061; 80305; 81003; 82550; 82553; 82962; 83735; 83880; 84439; 84443; 84481; 84484; 85025; 85379; 85610; 85730; 86850; 86900; 87086; 93005; 93306; 93880; 93970; 94640; 94644; 97116; 97162; J0610; J1815; J3490; J7030; J7060; J7611; J7620

== ENCOUNTER 2018-08-27 18:46 | Inpatient (IN) | payer MEDICARE ==
[~2018-08-27] VITALS: Ht 172.7 cm; Wt 68.7 kg
[~2018-08-27 18:46] MED LIST changes: -AMLO10TA80 PO; +ASPI-1158 PO; -CALCIUM PO; +COR3 PO; +DILT30TA38 PO; +LOV30 SUBCUT; -TEMA15CA PO
[2018-08-27] MEDS ORDERED: SODIUM CHLORIDE 0.9% 1000ML BAG (SEPSIS BOLUS) IV ONE (19:45)
[2018-08-27] MEDS ORDERED: VANCOMYCIN 1 G PREMIX 200 ML IV ONE (19:45)
[2018-08-27] MEDS ORDERED: PIPERACILLIN/TAZ 3.375G PREMIX 50 ML IV ONE (19:45)
[2018-08-27 20:20] LABS: BASOPHILS % 0.6 % (0.0-2.0); EOSINOPHILS % 0.6 % (0.0-5.0); HEMATOCRIT. 37.2 % (42.0-52.0); HEMOGLOBIN. 12.1 g/dL (14.0-18.0); LYMPHOCYTES % 8.2 % (20.0-50.0); MEAN CORPUSCULAR VOLUME 98.6 fL (80.0-94.0); MEAN PLATELET VOLUME 10.1 fl (7.4-10.4); MONOCYTES % 6.8 % (2.0-8.0); NEUTROPHILS % 83.8 % (40.0-76.0); PLATELET 151 x1000/uL (130-400); RED BLOOD CELL COUNT 3.78 mill/uL (4.7-6.1); RED CELL DISTRIBUTION WIDTH 18.6 % (11.6-14.6)
[2018-08-27 20:26] LABS: CHLORIDE 97 mEq/L (98-107)
[2018-08-27] MEDS ORDERED: POTASSIUM CHLORIDE 20MEQ TABLET SR PO ONE (21:15)
[2018-08-27] MEDS ORDERED: ENOXAPARIN 80MG/0.8ML SYR SUBCUT ONE (21:30)
[2018-08-27] MEDS ORDERED: PIPERACILLIN/TAZ 3.375G PREMIX 50 ML IV SCH (22:00)
[2018-08-27] MEDS ORDERED: ZOLPIDEM TARTRATE 5MG TABLET PO PRN (22:00)
[2018-08-27] MEDS ORDERED: MAGNESIUM/ALUMINUM HYDROXIDE/SIMETHICONE 30ML UDC PO PRN (22:00)
[2018-08-27] MEDS ORDERED: HEPARIN 5000 UNITS/ML VIAL IV ONE (22:00)
[2018-08-27] MEDS ORDERED: HEPARIN 25,000 UNITS PREMIX 500 ML IV SCH ×2 (22:00→23:45)
[2018-08-27] MEDS ORDERED: ONDANSETRON HCL 4MG/2ML INJ IV PRN (22:00)
[2018-08-27] MEDS ORDERED: NITROGLYCERIN 0.4MG TABLET SL SL PRN (22:00)
[2018-08-27] MEDS ORDERED: NA PHOS,M-B/NA PHOS,DI-BA ENEMA 118ML PR PRN (22:00)
[2018-08-27] MEDS ORDERED: GUAIFENESIN 200MG/10ML SUGAR FREE UDC PO PRN (22:00)
[2018-08-27] MEDS ORDERED: LORAZEPAM 0.5MG TABLET PO PRN (22:00)
[2018-08-27] MEDS ORDERED: IPRATROPIUM/ALBUTEROL 0.5-3(2.5)MG/3ML NEB INH PRN (22:00)
[2018-08-27] MEDS ORDERED: TRAMADOL 50MG TABLET PO PRN (22:00)
[2018-08-28] VITALS (12 sets, daily range): BP systolic 102–142; BP diastolic 54–75
[2018-08-28 00:42] LABS: CREATINE KINASE MB FRACTION 4.3 ng/mL (0.5-3.6)
[2018-08-28 02:28] LABS: INR 1.2; PARTIAL THROMBOPLASTIN TIME 36.3 sec (23.4-31.0)
[2018-08-28] MEDS ORDERED: HEPARIN BOLUS PRN aPTT 37-44 IV (03:00)
[2018-08-28] MEDS ORDERED: HEPARIN 80 UNITS/KG BOLUS IV SCH (03:00)
[2018-08-28] MEDS ORDERED: HEPARIN BOLUS PRN aPTT <36 IV (03:00)
[2018-08-28] MEDS ORDERED: HEPARIN 25,000 UNITS PREMIX 500 ML IV SCH (03:00)
[2018-08-28] MEDS: HEPARIN 25,000 UNITS PREMIX 500 ML IV SCH ×2 (03:33→14:45)
[2018-08-28] MEDS: PIPERACILLIN/TAZ 2.25G PREMIX 50 ML IV SCH ×3 (06:00→22:08)
[2018-08-28] MEDS: BLOOD SUGAR DIAGNOSTIC STRIP TEST SCH ×4 (07:45→21:00)
[2018-08-28] MEDS: SEVELAMER CARBONATE 800 MG TABLET PO SCH ×3 (08:08→17:02)
[2018-08-28] MEDS: ASCORBIC ACID 500 MG TABLET PO SCH ×2 (08:08→22:08)
[2018-08-28] MEDS: FOLIC ACID/VITAMIN B COMP W-C TABLET PO SCH (08:08)
[2018-08-28] MEDS: ASPIRIN 325MG EC TABLET PO SCH (08:08)
[2018-08-28] MEDS: FAMOTIDINE 20MG TABLET PO SCH (08:08)
[2018-08-28] MEDS: INSULIN LISPRO 100 UNITS/ML SUBCUT SCH ×4 (08:09→22:10)
[2018-08-28 12:01] LABS: LDL CHOLESTEROL 76 mg/dL (5-100)
[2018-08-28 12:02] LABS: HDL CHOLESTEROL 23 mg/dL (40-59)
[2018-08-28] MEDS: MIDODRINE HCL 10 MG TABLET PO SCH ×2 (12:23→17:49)
[2018-08-28 12:31] LABS: D-DIMER 3.77 mg/L FEU (<0.50)
[2018-08-28 12:37] LABS: PARTIAL THROMBOPLASTIN TIME > 200.0 sec (23.4-31.0)
[2018-08-28 17:53] LABS: CREATINE KINASE MB FRACTION 4.8 ng/mL (0.5-3.6)
[2018-08-29] VITALS (10 sets, daily range): BP systolic 88–164; BP diastolic 45–83
[2018-08-29 05:20] LABS: CREATINE KINASE MB FRACTION 4.1 ng/mL (0.5-3.6)
[2018-08-29] MEDS: PIPERACILLIN/TAZ 2.25G PREMIX 50 ML IV SCH ×3 (06:09→21:16)
[2018-08-29] MEDS: BLOOD SUGAR DIAGNOSTIC STRIP TEST SCH ×4 (07:59→21:13)
[2018-08-29] MEDS: INSULIN LISPRO 100 UNITS/ML SUBCUT SCH ×4 (07:59→21:00)
[2018-08-29 09:46] LABS: CREATINE KINASE MB FRACTION 8.1 ng/mL (0.5-3.6)
[2018-08-29] MEDS: FOLIC ACID/VITAMIN B COMP W-C TABLET PO SCH (09:58)
[2018-08-29] MEDS: MIDODRINE HCL 10 MG TABLET PO SCH ×3 (09:58→18:01)
[2018-08-29] MEDS: ASCORBIC ACID 500 MG TABLET PO SCH ×2 (09:58→21:13)
[2018-08-29] MEDS: SEVELAMER CARBONATE 800 MG TABLET PO SCH ×3 (09:58→18:01)
[2018-08-29] MEDS: ASPIRIN 325MG EC TABLET PO SCH (09:58)
[2018-08-29] MEDS: FAMOTIDINE 20MG TABLET PO SCH (09:59)
[2018-08-29] MEDS: HEPARIN 25,000 UNITS PREMIX 500 ML IV SCH (10:37)
[2018-08-29] MEDS ORDERED: VANCOMYCIN 1 G PREMIX 200 ML IV NR (11:00)
[2018-08-29] MEDS: NYSTATIN POWDER 15GM TOP SCH ×2 (13:13→18:01)
[2018-08-30] VITALS (9 sets, daily range): BP systolic 92–129; BP diastolic 49–81
[2018-08-30] MEDS: PIPERACILLIN/TAZ 2.25G PREMIX 50 ML IV SCH ×3 (06:08→21:25)
[2018-08-30 07:12] LABS: BASOPHILS % 1.2 % (0.0-2.0); EOSINOPHILS % 0.4 % (0.0-5.0); HEMATOCRIT. 39.7 % (42.0-52.0); HEMOGLOBIN. 12.7 g/dL (14.0-18.0); MEAN CORPUSCULAR HEMOGLOBIN 31.5 pg (28.0-32.0); MEAN CORPUSCULAR VOLUME 98.2 fL (80.0-94.0); MONOCYTES % 9.7 % (2.0-8.0); NEUTROPHILS % 73.7 % (40.0-76.0); PLATELET 157 x1000/uL (130-400); RED BLOOD CELL COUNT 4.04 mill/uL (4.7-6.1)
[2018-08-30] MEDS: BLOOD SUGAR DIAGNOSTIC STRIP TEST SCH ×4 (07:55→21:00)
[2018-08-30] MEDS: INSULIN LISPRO 100 UNITS/ML SUBCUT SCH ×4 (07:55→21:00)
[2018-08-30] MEDS ORDERED: DIGOXIN 500MCG/2ML AMP IV SCH (08:15)
[2018-08-30] MEDS: ASCORBIC ACID 500 MG TABLET PO SCH ×2 (08:37→21:25)
[2018-08-30] MEDS: SEVELAMER CARBONATE 800 MG TABLET PO SCH ×3 (08:37→17:38)
[2018-08-30] MEDS: FOLIC ACID/VITAMIN B COMP W-C TABLET PO SCH (08:37)
[2018-08-30] MEDS: FAMOTIDINE 20MG TABLET PO SCH (08:37)
[2018-08-30] MEDS: ASPIRIN 325MG EC TABLET PO SCH (08:38)
[2018-08-30] MEDS: MIDODRINE HCL 10 MG TABLET PO SCH ×3 (08:40→17:38)
[2018-08-30] MEDS: NYSTATIN POWDER 15GM TOP SCH ×2 (08:47→17:38)
[2018-08-30] MEDS ORDERED: IOHEXOL-350 100 ML BOTTLE ONE (15:52)
[2018-08-30] MEDS: HEPARIN 25,000 UNITS PREMIX 500 ML IV SCH (17:12)
[2018-08-31] VITALS (12 sets, daily range): BP systolic 84–151; BP diastolic 19–98
[2018-08-31] MEDS: PIPERACILLIN/TAZ 2.25G PREMIX 50 ML IV SCH ×3 (05:23→20:47)
[2018-08-31] MEDS: BLOOD SUGAR DIAGNOSTIC STRIP TEST SCH ×4 (07:58→20:57)
[2018-08-31] MEDS: INSULIN LISPRO 100 UNITS/ML SUBCUT SCH ×4 (07:59→20:57)
[2018-08-31] MEDS: ASPIRIN 325MG EC TABLET PO SCH (09:00)
[2018-08-31] MEDS: SEVELAMER CARBONATE 800 MG TABLET PO SCH ×3 (09:45→18:00)
[2018-08-31] MEDS: FAMOTIDINE 20MG TABLET PO SCH (09:45)
[2018-08-31] MEDS: ASCORBIC ACID 500 MG TABLET PO SCH ×2 (09:45→20:47)
[2018-08-31] MEDS: NYSTATIN POWDER 15GM TOP SCH ×2 (09:45→17:00)
[2018-08-31] MEDS: FOLIC ACID/VITAMIN B COMP W-C TABLET PO SCH (09:45)
[2018-08-31] MEDS: MIDODRINE HCL 10 MG TABLET PO SCH ×3 (09:45→17:00)
[2018-08-31] MEDS ORDERED: VANCOMYCIN 1 G PREMIX 200 ML IV SCH (14:00)
[2018-08-31] MEDS: DIPHENHYDRAMINE 50MG/ML VIAL IV PRN (15:23)
[2018-08-31] MEDS: MORPHINE SULFATE 4 MG/ML CPJ (NOT FOR IM USE) IV PRN (15:54)
[2018-08-31] MEDS: ENOXAPARIN 30MG/0.3ML SYR SUBCUT SCH (20:00)
[2018-08-31] MEDS: DEXTROSE 50% WATER 50ML SYRINGE IV PRN (20:56)
[2018-09-01] VITALS (11 sets, daily range): BP systolic 92–224; BP diastolic 27–131
[2018-09-01] MEDS: CLONIDINE 0.1MG TABLET PO PRN (01:02)
[2018-09-01] MEDS: PIPERACILLIN/TAZ 2.25G PREMIX 50 ML IV SCH ×3 (04:31→23:51)
[2018-09-01] MEDS: BLOOD SUGAR DIAGNOSTIC STRIP TEST SCH ×4 (07:30→21:24)
[2018-09-01] MEDS: DEXTROSE 50% WATER 50ML SYRINGE IV PRN (07:53)
[2018-09-01] MEDS: SEVELAMER CARBONATE 800 MG TABLET PO SCH ×3 (08:00→17:20)
[2018-09-01] MEDS: INSULIN LISPRO 100 UNITS/ML SUBCUT SCH ×4 (08:00→21:00)
[2018-09-01] MEDS: ASPIRIN 325MG EC TABLET PO SCH (09:00)
[2018-09-01] MEDS: ASCORBIC ACID 500 MG TABLET PO SCH ×2 (09:00→21:00)
[2018-09-01] MEDS: FAMOTIDINE 20MG TABLET PO SCH (09:00)
[2018-09-01] MEDS: FOLIC ACID/VITAMIN B COMP W-C TABLET PO SCH (09:00)
[2018-09-01] MEDS: MIDODRINE HCL 10 MG TABLET PO SCH ×3 (09:00→17:18)
[2018-09-01] MEDS: NYSTATIN POWDER 15GM TOP SCH ×2 (09:11→22:45)
[2018-09-01] MEDS: AMIODARONE HCL 900 MG in DEXT 5% WATER 482 ML IV SCH (12:29)
[2018-09-01] MEDS ORDERED: LIDOCAINE HCL 1% 10 MG/ML 10ML VIAL ONE (13:08)
[2018-09-01] MEDS ORDERED: MIDAZOLAM HCL 2 MG/2 ML VIAL ONE (13:08)
[2018-09-01] MEDS ORDERED: IOHEXOL-300 100 ML BOTTLE ONE (13:09)
[2018-09-01] MEDS ORDERED: FENTANYL CITRATE/PF 50MCG/ML 2ML VIAL ONE (13:09)
[2018-09-01] MEDS ORDERED: IODIXANOL 320MG/ML 100 ML BOTTLE IV ONE (13:09)
[2018-09-01] MEDS ORDERED: HEPARIN SODIUM 1,000 UNIT/1ML VIAL IV ONE (13:29)
[2018-09-01] MEDS ORDERED: CLOPIDOGREL 75MG TABLET ONE (14:19)
[2018-09-01] MEDS: ENOXAPARIN 30MG/0.3ML SYR SUBCUT SCH (20:57)
[2018-09-01] MEDS: MORPHINE SULFATE 4 MG/ML CPJ (NOT FOR IM USE) IV PRN (20:59)
[2018-09-02] VITALS (12 sets, daily range): BP systolic 112–176; BP diastolic 61–113
[2018-09-02] MEDS: AMIODARONE HCL 900 MG in DEXT 5% WATER 482 ML IV SCH (03:01)
[2018-09-02] MEDS: PIPERACILLIN/TAZ 2.25G PREMIX 50 ML IV SCH ×3 (05:33→23:13)
[2018-09-02] MEDS: BLOOD SUGAR DIAGNOSTIC STRIP TEST SCH ×4 (06:40→20:15)
[2018-09-02] MEDS: INSULIN LISPRO 100 UNITS/ML SUBCUT SCH ×4 (06:40→20:27)
[2018-09-02] MEDS: NYSTATIN POWDER 15GM TOP SCH ×2 (08:41→17:00)
[2018-09-02] MEDS: FOLIC ACID/VITAMIN B COMP W-C TABLET PO SCH (08:42)
[2018-09-02] MEDS: MIDODRINE HCL 10 MG TABLET PO SCH ×3 (08:42→18:07)
[2018-09-02] MEDS: FAMOTIDINE 20MG TABLET PO SCH (08:42)
[2018-09-02] MEDS: ASPIRIN 325MG EC TABLET PO SCH (08:42)
[2018-09-02] MEDS: CLOPIDOGREL 75MG TABLET PO SCH (08:42)
[2018-09-02] MEDS: ASCORBIC ACID 500 MG TABLET PO SCH ×2 (08:42→20:15)
[2018-09-02] MEDS: SEVELAMER CARBONATE 800 MG TABLET PO SCH ×3 (12:13→18:07)
[2018-09-02] MEDS: ENOXAPARIN 30MG/0.3ML SYR SUBCUT SCH (20:15)
[2018-09-03] VITALS (14 sets, daily range): BP systolic 118–205; BP diastolic 59–137
[2018-09-03] MEDS: CLONIDINE 0.1MG TABLET PO PRN (02:10)
[2018-09-03] MEDS: PIPERACILLIN/TAZ 2.25G PREMIX 50 ML IV SCH ×3 (06:19→21:25)
[2018-09-03] MEDS: BLOOD SUGAR DIAGNOSTIC STRIP TEST SCH ×4 (06:23→21:00)
[2018-09-03] MEDS: SEVELAMER CARBONATE 800 MG TABLET PO SCH ×3 (07:20→17:20)
[2018-09-03] MEDS: INSULIN LISPRO 100 UNITS/ML SUBCUT SCH ×4 (07:20→21:00)
[2018-09-03] MEDS: FAMOTIDINE 20MG TABLET PO SCH (09:29)
[2018-09-03] MEDS: ASCORBIC ACID 500 MG TABLET PO SCH ×2 (09:29→21:27)
[2018-09-03] MEDS: NYSTATIN POWDER 15GM TOP SCH ×2 (09:30→17:00)
[2018-09-03] MEDS: CLOPIDOGREL 75MG TABLET PO SCH (09:30)
[2018-09-03] MEDS: AMIODARONE HCL 200 MG TABLET PO SCH ×2 (09:30→21:24)
[2018-09-03] MEDS: FOLIC ACID/VITAMIN B COMP W-C TABLET PO SCH (09:30)
[2018-09-03] MEDS: ASPIRIN 325MG EC TABLET PO SCH (09:30)
[2018-09-03] MEDS: MIDODRINE HCL 10 MG TABLET PO SCH ×4 (09:35→21:25)
[2018-09-03] MEDS ORDERED: VANCOMYCIN 750 MG PREMIX 150 ML IV SCH (11:00)
[2018-09-03] MEDS ORDERED: DIGOXIN 500MCG/2ML AMP IV NR (17:00)
[2018-09-03] MEDS: ENOXAPARIN 30MG/0.3ML SYR SUBCUT SCH (20:00)
[2018-09-03] MEDS: ACETAMINOPHEN 325MG TABLET PO PRN (23:33)
[2018-09-04] VITALS (10 sets, daily range): BP systolic 105–135; BP diastolic 58–78
[2018-09-04] MEDS: PIPERACILLIN/TAZ 2.25G PREMIX 50 ML IV SCH (06:00)
[2018-09-04] MEDS: BLOOD SUGAR DIAGNOSTIC STRIP TEST SCH ×4 (07:04→20:18)
[2018-09-04] MEDS: SEVELAMER CARBONATE 800 MG TABLET PO SCH ×3 (07:04→17:02)
[2018-09-04] MEDS: INSULIN LISPRO 100 UNITS/ML SUBCUT SCH ×4 (07:05→20:17)
[2018-09-04] MEDS: ASCORBIC ACID 500 MG TABLET PO SCH ×2 (08:35→20:19)
[2018-09-04] MEDS: AMIODARONE HCL 200 MG TABLET PO SCH ×2 (08:35→20:19)
[2018-09-04] MEDS: FAMOTIDINE 20MG TABLET PO SCH (08:35)
[2018-09-04] MEDS: FOLIC ACID/VITAMIN B COMP W-C TABLET PO SCH (08:35)
[2018-09-04] MEDS: NYSTATIN POWDER 15GM TOP SCH (08:36)
[2018-09-04] MEDS: MIDODRINE HCL 10 MG TABLET PO SCH ×2 (13:20→17:02)
[2018-09-04] MEDS ORDERED: IPRATROPIUM/ALBUTEROL 0.5-3(2.5)MG/3ML NEB HHN PRN (14:15)
[2018-09-04] MEDS: IPRATROPIUM/ALBUTEROL 0.5-3(2.5)MG/3ML NEB HHN SCH ×2 (15:22→21:34)
[2018-09-04] MEDS: BUDESONIDE 0.5MG/2ML NEB HHN SCH ×2 (15:22→21:34)
[2018-09-04 18:04] LABS: BG CARBOXYHEMOGLOBIN 0.2 % (0.5-1.5); BG DEOXYHEMOGLOBIN 13.3 % (0.0-5.0); BG FRACTION INSPIRED OXYGEN 21; BG HCO3 ACT 25.8 mmol/L (22.0-26.0); BG OXYGEN SATURATION 86.7 % (92.0-98.5); BG OXYHEMOGLOBIN 86.5 % (94.0-97.0); BG PCO2 41.8 mmHg (35.0-45.0); BG PH 7.408 (7.350-7.450); BG PO2 55.7 mmHg (75.0-100.0); BG SAMPLE SITE RIGHT BRACHIAL; BG TOTAL HEMOGLOBIN 9.3 g/dL (12.0-18.0); BG VENT MODE ROOM AIR
[2018-09-04] MEDS: ENOXAPARIN 30MG/0.3ML SYR SUBCUT SCH (20:19)
[2018-09-05] VITALS (15 sets, daily range): BP systolic 99–158; BP diastolic 63–95
[2018-09-05] MEDS: IPRATROPIUM/ALBUTEROL 0.5-3(2.5)MG/3ML NEB HHN SCH ×3 (01:37→14:32)
[2018-09-05] MEDS: BLOOD SUGAR DIAGNOSTIC STRIP TEST SCH ×4 (05:51→21:00)
[2018-09-05] MEDS: INSULIN LISPRO 100 UNITS/ML SUBCUT SCH ×4 (06:29→21:00)
[2018-09-05] MEDS: SEVELAMER CARBONATE 800 MG TABLET PO SCH ×3 (08:14→17:05)
[2018-09-05] MEDS: FOLIC ACID/VITAMIN B COMP W-C TABLET PO SCH (08:23)
[2018-09-05] MEDS: AMIODARONE HCL 200 MG TABLET PO SCH ×2 (08:24→22:13)
[2018-09-05] MEDS: ASCORBIC ACID 500 MG TABLET PO SCH ×2 (08:24→22:13)
[2018-09-05] MEDS: DOCUSATE SODIUM 100MG CAPSULE PO PRN (08:24)
[2018-09-05] MEDS: FAMOTIDINE 20MG TABLET PO SCH (08:24)
[2018-09-05] MEDS: MIDODRINE HCL 5MG TABLET PO SCH ×3 (09:00→17:05)
[2018-09-05] MEDS: BUDESONIDE 0.5MG/2ML NEB HHN SCH ×2 (09:02→20:57)
[2018-09-05 10:29] LABS: CHLORIDE 97 mEq/L (98-107)
[2018-09-05 10:30] LABS: BASOPHILS % 0.8 % (0.0-2.0); EOSINOPHILS % 0.4 % (0.0-5.0); HEMOGLOBIN. 13.4 g/dL (14.0-18.0); LYMPHOCYTES % 16.1 % (20.0-50.0); MEAN CORPUSCULAR HEMOGLOBIN 32.5 pg (28.0-32.0); MEAN PLATELET VOLUME 10.1 fl (7.4-10.4); MONOCYTES % 8.5 % (2.0-8.0); NEUTROPHILS % 74.2 % (40.0-76.0); PLATELET 134 x1000/uL (130-400); RED BLOOD CELL COUNT 4.12 mill/uL (4.7-6.1); RED CELL DISTRIBUTION WIDTH 21.6 % (11.6-14.6)
[2018-09-05] MEDS: ENOXAPARIN 30MG/0.3ML SYR SUBCUT SCH (22:13)
[2018-09-06] VITALS (12 sets, daily range): BP systolic 76–151; BP diastolic 36–94
[2018-09-06] MEDS: INSULIN LISPRO 100 UNITS/ML SUBCUT SCH ×4 (06:42→21:00)
[2018-09-06] MEDS: BLOOD SUGAR DIAGNOSTIC STRIP TEST SCH ×4 (06:42→21:02)
[2018-09-06] MEDS: MIDODRINE HCL 5MG TABLET PO SCH ×3 (08:30→17:43)
[2018-09-06] MEDS: FOLIC ACID/VITAMIN B COMP W-C TABLET PO SCH (08:30)
[2018-09-06] MEDS: FAMOTIDINE 20MG TABLET PO SCH (08:30)
[2018-09-06] MEDS: AMIODARONE HCL 200 MG TABLET PO SCH ×2 (08:30→21:02)
[2018-09-06] MEDS: ASCORBIC ACID 500 MG TABLET PO SCH ×2 (08:30→21:02)
[2018-09-06] MEDS: SEVELAMER CARBONATE 800 MG TABLET PO SCH ×3 (08:30→17:43)
[2018-09-06] MEDS: BUDESONIDE 0.5MG/2ML NEB HHN SCH ×2 (09:31→21:00)
[2018-09-06] MEDS: IPRATROPIUM/ALBUTEROL 0.5-3(2.5)MG/3ML NEB HHN SCH ×3 (09:32→21:01)
[2018-09-06] MEDS ORDERED: DIGOXIN 500MCG/2ML AMP IV NR (10:30)
[2018-09-06] MEDS: MIRTAZAPINE 15MG TABLET PO SCH (21:02)
[2018-09-06] MEDS: ENOXAPARIN 30MG/0.3ML SYR SUBCUT SCH (21:05)
[2018-09-07] VITALS (9 sets, daily range): BP systolic 81–150; BP diastolic 32–116
[2018-09-07] MEDS: IPRATROPIUM/ALBUTEROL 0.5-3(2.5)MG/3ML NEB HHN SCH ×4 (01:00→20:34)
[2018-09-07] MEDS: SEVELAMER CARBONATE 800 MG TABLET PO SCH ×3 (07:20→18:43)
[2018-09-07] MEDS: INSULIN LISPRO 100 UNITS/ML SUBCUT SCH ×4 (07:20→21:00)
[2018-09-07] MEDS: BLOOD SUGAR DIAGNOSTIC STRIP TEST SCH ×4 (07:28→20:43)
[2018-09-07] MEDS: BUDESONIDE 0.5MG/2ML NEB HHN SCH (08:32)
[2018-09-07] MEDS: ASCORBIC ACID 500 MG TABLET PO SCH ×2 (09:00→20:33)
[2018-09-07] MEDS: FAMOTIDINE 20MG TABLET PO SCH (09:00)
[2018-09-07] MEDS: AMIODARONE HCL 200 MG TABLET PO SCH ×2 (09:00→21:29)
[2018-09-07] MEDS: FOLIC ACID/VITAMIN B COMP W-C TABLET PO SCH (09:00)
[2018-09-07] MEDS: MIDODRINE HCL 5MG TABLET PO SCH ×3 (09:00→18:44)
[2018-09-07] MEDS: DIGOXIN 125MCG TABLET PO SCH (12:12)
[2018-09-07] MEDS: MIRTAZAPINE 15MG TABLET PO SCH (20:33)
[2018-09-07] MEDS: ENOXAPARIN 30MG/0.3ML SYR SUBCUT SCH (20:44)
[2018-09-08] VITALS (13 sets, daily range): BP systolic 97–154; BP diastolic 53–113
[2018-09-08] MEDS: IPRATROPIUM/ALBUTEROL 0.5-3(2.5)MG/3ML NEB HHN SCH ×4 (00:59→21:20)
[2018-09-08] MEDS: BLOOD SUGAR DIAGNOSTIC STRIP TEST SCH ×4 (06:36→21:29)
[2018-09-08] MEDS: INSULIN LISPRO 100 UNITS/ML SUBCUT SCH ×4 (07:20→21:00)
[2018-09-08] MEDS: ASCORBIC ACID 500 MG TABLET PO SCH ×2 (08:48→21:23)
[2018-09-08] MEDS: SEVELAMER CARBONATE 800 MG TABLET PO SCH ×3 (08:48→18:14)
[2018-09-08] MEDS: AMIODARONE HCL 200 MG TABLET PO SCH ×2 (08:48→21:23)
[2018-09-08] MEDS: FAMOTIDINE 20MG TABLET PO SCH (08:49)
[2018-09-08] MEDS: FOLIC ACID/VITAMIN B COMP W-C TABLET PO SCH (08:49)
[2018-09-08] MEDS: MIDODRINE HCL 5MG TABLET PO SCH ×4 (08:49→18:13)
[2018-09-08] MEDS ORDERED: LIDOCAINE HCL 1% 20ML VIAL (Pyxis) INJ ONE (10:06)
[2018-09-08] MEDS: MIRTAZAPINE 15MG TABLET PO SCH (21:23)
[2018-09-08] MEDS: DIPHENHYDRAMINE 50MG/ML VIAL IV PRN (22:21)
[2018-09-09] VITALS (15 sets, daily range): BP systolic 102–167; BP diastolic 61–130
[2018-09-09] MEDS: IPRATROPIUM/ALBUTEROL 0.5-3(2.5)MG/3ML NEB HHN SCH ×3 (03:42→21:40)
[2018-09-09] MEDS: BLOOD SUGAR DIAGNOSTIC STRIP TEST SCH ×4 (06:53→20:47)
[2018-09-09 06:56] LABS: HEMATOCRIT 41.4 % (42.0-52.0); HEMOGLOBIN 13.2 g/dL (14.0-18.0); MEAN CORPUSCULAR HEMOGLOBIN 32.6 pg (28.0-32.0); MEAN CORPUSCULAR VOLUME 102.1 fL (80.0-94.0); PLATELET 133 x1000/uL (130-400); RED BLOOD CELL COUNT 4.05 mill/uL (4.7-6.1); RED CELL DISTRIBUTION WIDTH 24.8 % (11.6-14.6)
[2018-09-09 07:01] LABS: INR 1.4; PARTIAL THROMBOPLASTIN TIME 39.7 sec (23.4-31.0); PROTHROMBIN TIME 14.3 sec (9.1-11.1)
[2018-09-09] MEDS: SEVELAMER CARBONATE 800 MG TABLET PO SCH ×3 (07:20→17:20)
[2018-09-09] MEDS: INSULIN LISPRO 100 UNITS/ML SUBCUT SCH ×4 (07:20→20:47)
[2018-09-09] MEDS: DIGOXIN 125MCG TABLET PO SCH (08:53)
[2018-09-09] MEDS: AMIODARONE HCL 200 MG TABLET PO SCH ×2 (08:53→20:47)
[2018-09-09] MEDS: MIDODRINE HCL 5MG TABLET PO SCH ×3 (08:53→17:00)
[2018-09-09] MEDS: ASCORBIC ACID 500 MG TABLET PO SCH ×2 (08:55→20:48)
[2018-09-09] MEDS: FOLIC ACID/VITAMIN B COMP W-C TABLET PO SCH (08:55)
[2018-09-09] MEDS: FAMOTIDINE 20MG TABLET PO SCH (08:55)
[2018-09-09] MEDS ORDERED: BACITRACIN ZINC 15GM TUBE TOP ONE (11:44)
[2018-09-09] MEDS ORDERED: NORMAL SALINE 0.9% 10 ML SYR ONE (11:44)
[2018-09-09] MEDS ORDERED: BUPIVACAINE HCL 0.5% (5MG/ML) 50ML ONE (11:44)
[2018-09-09] MEDS ORDERED: VANCOMYCIN HCL 500 MG/VIAL ONE (11:44)
[2018-09-09] MEDS ORDERED: BACITRACIN 50,000 UNITS/VIAL ONE (11:45)
[2018-09-09] MEDS ORDERED: ONDANSETRON HCL 4MG/2ML INJ IV PRN (15:45)
[2018-09-09] MEDS ORDERED: MEPERIDINE HCL/PF 25MG/ML CPJ IV PRN (15:45)
[2018-09-09] MEDS ORDERED: LABETALOL 5MG/ML SYR 20 MG/4 ML SYRINGE IV PRN (15:45)
[2018-09-09] MEDS ORDERED: HYDROMORPHONE HCL/PF 2MG/ML CPJ IV PRN (15:45)
[2018-09-09] MEDS ORDERED: FENTANYL CITRATE/PF 50MCG/ML 2ML VIAL ONE (15:52)
[2018-09-09] MEDS ORDERED: MIDAZOLAM HCL 2 MG/2 ML VIAL ONE (15:52)
[2018-09-09] MEDS ORDERED: PROPOFOL 200MG/20ML VIAL IV ONE ×2 (16:02→16:37)
[2018-09-09] MEDS ORDERED: ROCURONIUM BROMIDE 10MG/ML VIAL 5ML IV ONE (16:14)
[2018-09-09] MEDS: CEFAZOLIN 1000MG PREMIX 50 ML IV SCH (17:00)
[2018-09-09 20:04] LABS: BASOPHILS % 0.4 % (0.0-2.0); EOSINOPHILS % 0.8 % (0.0-5.0); HEMOGLOBIN. 13.5 g/dL (14.0-18.0); LYMPHOCYTES % 9.2 % (20.0-50.0); MEAN CORPUSCULAR VOLUME 104.8 fL (80.0-94.0); MEAN PLATELET VOLUME 9.5 fl (7.4-10.4); MONOCYTES % 9.2 % (2.0-8.0); NEUTROPHILS % 80.4 % (40.0-76.0); PLATELET 78 x1000/uL (130-400); RED CELL DISTRIBUTION WIDTH 24.1 % (11.6-14.6)
[2018-09-09 20:21] LABS: PLATELET ESTIMATE DECREASED
[2018-09-10] VITALS (16 sets, daily range): BP systolic 115–153; BP diastolic 55–92
[2018-09-10] MEDS: CEFAZOLIN 1000MG PREMIX 50 ML IV SCH ×3 (01:11→17:29)
[2018-09-10] MEDS: IPRATROPIUM/ALBUTEROL 0.5-3(2.5)MG/3ML NEB HHN SCH ×3 (01:20→21:34)
[2018-09-10] MEDS: BLOOD SUGAR DIAGNOSTIC STRIP TEST SCH ×5 (05:51→21:02)
[2018-09-10 06:35] LABS: HEMATOCRIT. 40.4 % (42.0-52.0); HEMOGLOBIN. 12.7 g/dL (14.0-18.0); MEAN CORPUSCULAR HEMOGLOBIN 33.1 pg (28.0-32.0); MEAN PLATELET VOLUME 9.5 fl (7.4-10.4); PLATELET 101 x1000/uL (130-400); RED BLOOD CELL COUNT 3.84 mill/uL (4.7-6.1); RED CELL DISTRIBUTION WIDTH 25.1 % (11.6-14.6)
[2018-09-10] MEDS: INSULIN LISPRO 100 UNITS/ML SUBCUT SCH ×5 (07:20→21:00)
[2018-09-10] MEDS: SEVELAMER CARBONATE 800 MG TABLET PO SCH ×4 (07:20→17:20)
[2018-09-10] MEDS: ACETAMINOPHEN 325MG TABLET PO PRN (08:09)
[2018-09-10] MEDS: FOLIC ACID/VITAMIN B COMP W-C TABLET PO SCH ×2 (08:10→08:27)
[2018-09-10] MEDS: MIDODRINE HCL 5MG TABLET PO SCH ×4 (08:10→17:00)
[2018-09-10] MEDS: AMIODARONE HCL 200 MG TABLET PO SCH ×2 (08:10→21:11)
[2018-09-10] MEDS: FAMOTIDINE 20MG TABLET PO SCH ×2 (08:11→08:28)
[2018-09-10] MEDS: ASCORBIC ACID 500 MG TABLET PO SCH ×3 (08:11→21:11)
[2018-09-10] MEDS: DOCUSATE SODIUM 100MG CAPSULE PO PRN (08:12)
[2018-09-10 08:41] LABS: PLATELET ESTIMATE DECREASED
[2018-09-10] MEDS ORDERED: MORPHINE SULFATE 4 MG/ML CPJ (NOT FOR IM USE) IV PRN (10:45)
[2018-09-10] MEDS ORDERED: OXYCODONE HCL/ACETAMINOPHEN 5/325MG TABLET PO PRN (10:45)
[2018-09-10] MEDS: MORPHINE SULFATE 4 MG/ML CPJ (NOT FOR IM USE) IV PRN ×2 (14:42→21:30)
[2018-09-11] MEDS: IPRATROPIUM/ALBUTEROL 0.5-3(2.5)MG/3ML NEB HHN SCH ×4 (02:59→21:27)
[2018-09-11 04:00] VITALS: BP 146/68
[2018-09-11] MEDS: BLOOD SUGAR DIAGNOSTIC STRIP TEST SCH ×4 (05:15→21:00)
[2018-09-11 06:00] VITALS: BP 156/66
[2018-09-11] MEDS: INSULIN LISPRO 100 UNITS/ML SUBCUT SCH ×4 (07:30→21:00)
[2018-09-11 08:00] VITALS: BP 155/66
[2018-09-11] MEDS: SEVELAMER CARBONATE 800 MG TABLET PO SCH ×3 (08:44→18:13)
[2018-09-11] MEDS: MIDODRINE HCL 5MG TABLET PO SCH ×3 (09:00→17:00)
[2018-09-11] MEDS: FAMOTIDINE 20MG TABLET PO SCH (09:23)
[2018-09-11] MEDS: AMIODARONE HCL 200 MG TABLET PO SCH ×2 (09:23→22:00)
[2018-09-11] MEDS: FOLIC ACID/VITAMIN B COMP W-C TABLET PO SCH (09:23)
[2018-09-11] MEDS: ASCORBIC ACID 500 MG TABLET PO SCH ×2 (09:23→21:59)
[2018-09-11] MEDS: DIGOXIN 125MCG TABLET PO SCH (09:23)
[2018-09-11 12:00] VITALS: BP 157/67
[2018-09-11 16:00] VITALS: BP 140/60
[2018-09-11] MEDS: MORPHINE SULFATE 4 MG/ML CPJ (NOT FOR IM USE) IV PRN (21:59)
[2018-09-12] VITALS (7 sets, daily range): BP systolic 130–147; BP diastolic 52–91
[2018-09-12] MEDS: IPRATROPIUM/ALBUTEROL 0.5-3(2.5)MG/3ML NEB HHN SCH ×4 (01:13→19:56)
[2018-09-12] MEDS: BLOOD SUGAR DIAGNOSTIC STRIP TEST SCH ×4 (07:40→20:29)
[2018-09-12] MEDS: INSULIN LISPRO 100 UNITS/ML SUBCUT SCH ×4 (08:10→20:29)
[2018-09-12] MEDS: FOLIC ACID/VITAMIN B COMP W-C TABLET PO SCH (09:01)
[2018-09-12] MEDS: AMIODARONE HCL 200 MG TABLET PO SCH ×2 (09:02→20:22)
[2018-09-12] MEDS: ASCORBIC ACID 500 MG TABLET PO SCH ×2 (09:02→20:22)
[2018-09-12] MEDS: FAMOTIDINE 20MG TABLET PO SCH (09:02)
[2018-09-12] MEDS: SEVELAMER CARBONATE 800 MG TABLET PO SCH ×3 (09:02→17:12)
[2018-09-12] MEDS: MIDODRINE HCL 5MG TABLET PO SCH ×3 (09:02→17:12)
[2018-09-12] MEDS: MORPHINE SULFATE 4 MG/ML CPJ (NOT FOR IM USE) IV PRN ×2 (09:33→12:48)
[2018-09-13] VITALS (7 sets, daily range): BP systolic 95–153; BP diastolic 43–65
[2018-09-13] MEDS: IPRATROPIUM/ALBUTEROL 0.5-3(2.5)MG/3ML NEB HHN SCH ×4 (02:18→20:36)
[2018-09-13] MEDS: MORPHINE SULFATE 4 MG/ML CPJ (NOT FOR IM USE) IV PRN ×2 (05:26→11:25)
[2018-09-13] MEDS: BLOOD SUGAR DIAGNOSTIC STRIP TEST SCH ×4 (05:26→20:39)
[2018-09-13] MEDS: INSULIN LISPRO 100 UNITS/ML SUBCUT SCH ×4 (08:10→20:39)
[2018-09-13] MEDS: AMIODARONE HCL 200 MG TABLET PO SCH ×2 (08:58→20:49)
[2018-09-13] MEDS: SEVELAMER CARBONATE 800 MG TABLET PO SCH ×3 (08:58→17:47)
[2018-09-13] MEDS: FOLIC ACID/VITAMIN B COMP W-C TABLET PO SCH (08:58)
[2018-09-13] MEDS: ASCORBIC ACID 500 MG TABLET PO SCH ×2 (08:59→20:49)
[2018-09-13] MEDS: MIDODRINE HCL 5MG TABLET PO SCH ×3 (08:59→17:47)
[2018-09-13] MEDS: FAMOTIDINE 20MG TABLET PO SCH (08:59)
[2018-09-14 00:08] VITALS: BP 119/42
[2018-09-14] MEDS: IPRATROPIUM/ALBUTEROL 0.5-3(2.5)MG/3ML NEB HHN SCH ×4 (01:49→21:16)
[2018-09-14 04:00] VITALS: BP 141/60
[2018-09-14 06:20] LABS: BASOPHILS % 0.7 % (0.0-2.0); HEMATOCRIT. 38.1 % (42.0-52.0); HEMOGLOBIN. 12.4 g/dL (14.0-18.0); MEAN CORPUSCULAR HEMOGLOBIN 33.6 pg (28.0-32.0); MEAN CORPUSCULAR VOLUME 103.2 fL (80.0-94.0); MEAN PLATELET VOLUME 9.5 fl (7.4-10.4); MONOCYTES % 12.8 % (2.0-8.0); NEUTROPHILS % 72.5 % (40.0-76.0); PLATELET 124 x1000/uL (130-400); RED BLOOD CELL COUNT 3.69 mill/uL (4.7-6.1); RED CELL DISTRIBUTION WIDTH 25.6 % (11.6-14.6)
[2018-09-14] MEDS: BLOOD SUGAR DIAGNOSTIC STRIP TEST SCH ×4 (06:32→21:19)
[2018-09-14 07:59] LABS: CHLORIDE 98 mEq/L (98-107)
[2018-09-14 08:00] VITALS: BP 147/58
[2018-09-14] MEDS: INSULIN LISPRO 100 UNITS/ML SUBCUT SCH ×4 (08:10→21:00)
[2018-09-14] MEDS: SEVELAMER CARBONATE 800 MG TABLET PO SCH ×3 (09:21→20:03)
[2018-09-14] MEDS: ASCORBIC ACID 500 MG TABLET PO SCH ×2 (09:23→20:06)
[2018-09-14] MEDS: FOLIC ACID/VITAMIN B COMP W-C TABLET PO SCH (09:23)
[2018-09-14] MEDS: FAMOTIDINE 20MG TABLET PO SCH (09:23)
[2018-09-14] MEDS: MIDODRINE HCL 5MG TABLET PO SCH ×4 (09:23→20:06)
[2018-09-14] MEDS: AMIODARONE HCL 200 MG TABLET PO SCH ×2 (09:23→20:07)
[2018-09-14] MEDS: MORPHINE SULFATE 4 MG/ML CPJ (NOT FOR IM USE) IV PRN ×2 (09:42→20:29)
[2018-09-14 12:00] VITALS: BP 140/59
[2018-09-14 16:00] VITALS: BP 185/62
[2018-09-14] MEDS: CLONIDINE 0.1MG TABLET PO PRN (16:27)
[2018-09-14 20:00] VITALS: BP 146/67
[2018-09-15] VITALS: BP 128/65
[2018-09-15] MEDS: IPRATROPIUM/ALBUTEROL 0.5-3(2.5)MG/3ML NEB HHN SCH ×4 (01:08→20:49)
[2018-09-15 04:00] VITALS: BP 135/52
[2018-09-15] MEDS: BLOOD SUGAR DIAGNOSTIC STRIP TEST SCH ×4 (06:30→20:46)
[2018-09-15 08:00] VITALS: BP 143/84
[2018-09-15] MEDS: INSULIN LISPRO 100 UNITS/ML SUBCUT SCH ×4 (08:10→20:47)
[2018-09-15] MEDS: SEVELAMER CARBONATE 800 MG TABLET PO SCH ×3 (08:10→18:08)
[2018-09-15] MEDS: AMIODARONE HCL 200 MG TABLET PO SCH ×2 (08:14→20:35)
[2018-09-15] MEDS: FOLIC ACID/VITAMIN B COMP W-C TABLET PO SCH (08:14)
[2018-09-15] MEDS: FAMOTIDINE 20MG TABLET PO SCH (08:14)
[2018-09-15] MEDS: ASCORBIC ACID 500 MG TABLET PO SCH ×2 (08:14→20:35)
[2018-09-15] MEDS: MIDODRINE HCL 5MG TABLET PO SCH ×3 (08:14→17:00)
[2018-09-15] MEDS: MORPHINE SULFATE 4 MG/ML CPJ (NOT FOR IM USE) IV PRN (11:58)
[2018-09-15 12:00] VITALS: BP 143/84
[2018-09-15] MEDS: OXYCODONE HCL/ACETAMINOPHEN 5/325MG TABLET PO PRN ×2 (12:22→20:36)
[2018-09-15 16:00] VITALS: BP 138/74
[2018-09-15 20:00] VITALS: BP 133/59
[2018-09-16] VITALS: BP 109/58
[2018-09-16] MEDS: IPRATROPIUM/ALBUTEROL 0.5-3(2.5)MG/3ML NEB HHN SCH ×4 (01:00→21:24)
[2018-09-16 04:00] VITALS: BP 129/61
[2018-09-16] MEDS: BLOOD SUGAR DIAGNOSTIC STRIP TEST SCH ×4 (06:31→20:37)
[2018-09-16 08:00] VITALS: BP 150/61
[2018-09-16] MEDS: INSULIN LISPRO 100 UNITS/ML SUBCUT SCH ×4 (08:10→20:37)
[2018-09-16] MEDS: FOLIC ACID/VITAMIN B COMP W-C TABLET PO SCH (08:53)
[2018-09-16] MEDS: FAMOTIDINE 20MG TABLET PO SCH (08:53)
[2018-09-16] MEDS: SEVELAMER CARBONATE 800 MG TABLET PO SCH ×3 (08:53→18:06)
[2018-09-16] MEDS: ASCORBIC ACID 500 MG TABLET PO SCH ×2 (08:53→20:31)
[2018-09-16] MEDS: MIDODRINE HCL 5MG TABLET PO SCH ×2 (08:54→13:00)
[2018-09-16] MEDS: AMIODARONE HCL 200 MG TABLET PO SCH ×2 (08:54→20:31)
[2018-09-16 12:00] VITALS: BP 154/64
[2018-09-16 16:00] VITALS: BP 168/71
[2018-09-16 20:00] VITALS: BP 151/69
[2018-09-17] VITALS: BP 155/63
[2018-09-17] MEDS: IPRATROPIUM/ALBUTEROL 0.5-3(2.5)MG/3ML NEB HHN SCH ×4 (02:46→20:05)
[2018-09-17 04:00] VITALS: BP 150/62
[2018-09-17] MEDS: BLOOD SUGAR DIAGNOSTIC STRIP TEST SCH ×4 (06:52→21:16)
[2018-09-17 08:00] VITALS: BP 139/56
[2018-09-17] MEDS: INSULIN LISPRO 100 UNITS/ML SUBCUT SCH ×4 (08:07→21:00)
[2018-09-17] MEDS: ASCORBIC ACID 500 MG TABLET PO SCH ×2 (09:44→21:16)
[2018-09-17] MEDS: FAMOTIDINE 20MG TABLET PO SCH (09:44)
[2018-09-17] MEDS: AMIODARONE HCL 200 MG TABLET PO SCH ×2 (09:44→21:16)
[2018-09-17] MEDS: FOLIC ACID/VITAMIN B COMP W-C TABLET PO SCH (09:44)
[2018-09-17] MEDS: SEVELAMER CARBONATE 800 MG TABLET PO SCH ×3 (09:44→17:57)
[2018-09-17] MEDS: OXYCODONE HCL/ACETAMINOPHEN 5/325MG TABLET PO PRN (11:48)
[2018-09-17 12:00] VITALS: BP 139/65
[2018-09-17 16:00] VITALS: BP 143/63
[2018-09-17 19:54] VITALS: BP 151/66
[2018-09-18] VITALS: BP 154/65
[2018-09-18] MEDS: IPRATROPIUM/ALBUTEROL 0.5-3(2.5)MG/3ML NEB HHN SCH ×4 (02:03→21:05)
[2018-09-18 04:00] VITALS: BP 137/60
[2018-09-18 08:00] VITALS: BP 157/65
[2018-09-18] MEDS: INSULIN LISPRO 100 UNITS/ML SUBCUT SCH ×4 (08:10→20:53)
[2018-09-18] MEDS: BLOOD SUGAR DIAGNOSTIC STRIP TEST SCH ×4 (08:29→20:53)
[2018-09-18] MEDS: FAMOTIDINE 20MG TABLET PO SCH (09:40)
[2018-09-18] MEDS: ASCORBIC ACID 500 MG TABLET PO SCH ×2 (09:40→20:53)
[2018-09-18] MEDS: AMIODARONE HCL 200 MG TABLET PO SCH ×2 (09:40→20:53)
[2018-09-18] MEDS: SEVELAMER CARBONATE 800 MG TABLET PO SCH ×3 (09:40→18:45)
[2018-09-18] MEDS: FOLIC ACID/VITAMIN B COMP W-C TABLET PO SCH (09:40)
[2018-09-18 12:00] VITALS: BP 158/65
[2018-09-18] MEDS: OXYCODONE HCL/ACETAMINOPHEN 5/325MG TABLET PO PRN ×2 (13:06→23:10)
[2018-09-18 20:00] VITALS: BP 145/66
[2018-09-19 00:02] VITALS: BP 138/64
[2018-09-19] MEDS: IPRATROPIUM/ALBUTEROL 0.5-3(2.5)MG/3ML NEB HHN SCH ×4 (02:12→20:30)
[2018-09-19 04:00] VITALS: BP 150/63
[2018-09-19 07:15] LABS: BASOPHILS % 0.9 % (0.0-2.0); HEMATOCRIT. 38.1 % (42.0-52.0); HEMOGLOBIN. 12.3 g/dL (14.0-18.0); MEAN CORPUSCULAR HEMOGLOBIN 33.4 pg (28.0-32.0); MEAN PLATELET VOLUME 8.7 fl (7.4-10.4); MONOCYTES % 11.3 % (2.0-8.0); NEUTROPHILS % 70.8 % (40.0-76.0); PLATELET 139 x1000/uL (130-400); RED CELL DISTRIBUTION WIDTH 24.4 % (11.6-14.6)
[2018-09-19] MEDS: INSULIN LISPRO 100 UNITS/ML SUBCUT SCH ×4 (07:42→21:00)
[2018-09-19] MEDS: BLOOD SUGAR DIAGNOSTIC STRIP TEST SCH ×4 (07:43→21:07)
[2018-09-19 08:00] VITALS: BP 140/62
[2018-09-19] MEDS: DOCUSATE SODIUM 100MG CAPSULE PO PRN (09:15)
[2018-09-19] MEDS: ASCORBIC ACID 500 MG TABLET PO SCH ×2 (09:15→20:49)
[2018-09-19] MEDS: SEVELAMER CARBONATE 800 MG TABLET PO SCH ×3 (09:15→16:58)
[2018-09-19] MEDS: AMIODARONE HCL 200 MG TABLET PO SCH ×2 (09:15→20:49)
[2018-09-19] MEDS: FAMOTIDINE 20MG TABLET PO SCH (09:15)
[2018-09-19] MEDS: FOLIC ACID/VITAMIN B COMP W-C TABLET PO SCH (09:15)
[2018-09-19 12:00] VITALS: BP 138/79
[2018-09-19 16:00] VITALS: BP 129/61
[2018-09-19] MEDS: ACETAMINOPHEN 325MG TABLET PO PRN (17:03)
[2018-09-19 20:00] VITALS: BP 153/66
[2018-09-19] MEDS: OXYCODONE HCL/ACETAMINOPHEN 5/325MG TABLET PO PRN (21:12)
[2018-09-20] VITALS: BP 151/64
[2018-09-20] MEDS: IPRATROPIUM/ALBUTEROL 0.5-3(2.5)MG/3ML NEB HHN SCH ×4 (02:40→20:23)
[2018-09-20 04:00] VITALS: BP 151/64
[2018-09-20] MEDS: BLOOD SUGAR DIAGNOSTIC STRIP TEST SCH ×4 (06:58→21:25)
[2018-09-20 08:00] VITALS: BP 144/61
[2018-09-20] MEDS: INSULIN LISPRO 100 UNITS/ML SUBCUT SCH ×5 (08:10→21:30)
[2018-09-20] MEDS: AMIODARONE HCL 200 MG TABLET PO SCH ×2 (09:08→20:36)
[2018-09-20] MEDS: SEVELAMER CARBONATE 800 MG TABLET PO SCH ×3 (09:08→17:24)
[2018-09-20] MEDS: FOLIC ACID/VITAMIN B COMP W-C TABLET PO SCH (09:08)
[2018-09-20] MEDS: DOCUSATE SODIUM 100MG CAPSULE PO PRN (09:08)
[2018-09-20] MEDS: ASCORBIC ACID 500 MG TABLET PO SCH ×2 (09:08→20:35)
[2018-09-20] MEDS: FAMOTIDINE 20MG TABLET PO SCH (09:12)
[2018-09-20 12:00] VITALS: BP_SYST 143; BP_DIAS 74; BP_DIAS 75
[2018-09-20] MEDS: ACETAMINOPHEN 325MG TABLET PO PRN (12:00)
[2018-09-20 16:00] VITALS: BP 147/63
[2018-09-20 20:00] VITALS: BP 135/69
[2018-09-21] VITALS (7 sets, daily range): BP systolic 118–164; BP diastolic 61–77
[2018-09-21] MEDS: IPRATROPIUM/ALBUTEROL 0.5-3(2.5)MG/3ML NEB HHN SCH ×4 (00:35→21:00)
[2018-09-21] MEDS: BLOOD SUGAR DIAGNOSTIC STRIP TEST SCH ×4 (06:15→21:00)
[2018-09-21] MEDS: ASCORBIC ACID 500 MG TABLET PO SCH ×3 (09:17→22:26)
[2018-09-21] MEDS: FAMOTIDINE 20MG TABLET PO SCH (09:17)
[2018-09-21] MEDS: FOLIC ACID/VITAMIN B COMP W-C TABLET PO SCH (09:18)
[2018-09-21] MEDS: AMIODARONE HCL 200 MG TABLET PO SCH ×3 (09:18→22:26)
[2018-09-21] MEDS: SEVELAMER CARBONATE 800 MG TABLET PO SCH ×3 (09:18→18:17)
[2018-09-21] MEDS: INSULIN LISPRO 100 UNITS/ML SUBCUT SCH ×3 (12:33→21:00)
[2018-09-22] VITALS: BP 151/64
[2018-09-22] MEDS: IPRATROPIUM/ALBUTEROL 0.5-3(2.5)MG/3ML NEB HHN SCH ×4 (01:45→21:08)
[2018-09-22 04:00] VITALS: BP 166/72
[2018-09-22] MEDS: CLONIDINE 0.1MG TABLET PO PRN (04:31)
[2018-09-22] MEDS: BLOOD SUGAR DIAGNOSTIC STRIP TEST SCH ×4 (05:32→21:35)
[2018-09-22 08:00] VITALS: BP 145/66
[2018-09-22] MEDS: INSULIN LISPRO 100 UNITS/ML SUBCUT SCH ×4 (08:10→21:00)
[2018-09-22] MEDS: AMIODARONE HCL 200 MG TABLET PO SCH ×2 (10:27→22:04)
[2018-09-22] MEDS: SEVELAMER CARBONATE 800 MG TABLET PO SCH ×3 (10:27→18:10)
[2018-09-22] MEDS: FOLIC ACID/VITAMIN B COMP W-C TABLET PO SCH (10:27)
[2018-09-22] MEDS: FAMOTIDINE 20MG TABLET PO SCH (10:27)
[2018-09-22] MEDS: ASCORBIC ACID 500 MG TABLET PO SCH ×2 (10:27→22:04)
[2018-09-22 12:00] VITALS: BP 145/60
[2018-09-22 16:00] VITALS: BP 122/59
[2018-09-22 20:00] VITALS: BP 152/57
[2018-09-22] MEDS: ACETAMINOPHEN 325MG TABLET PO PRN (22:09)
[2018-09-23] VITALS (7 sets, daily range): BP systolic 96–163; BP diastolic 56–106
[2018-09-23] MEDS: IPRATROPIUM/ALBUTEROL 0.5-3(2.5)MG/3ML NEB HHN SCH ×4 (02:54→20:29)
[2018-09-23] MEDS: BLOOD SUGAR DIAGNOSTIC STRIP TEST SCH ×4 (06:06→21:52)
[2018-09-23 08:04] LABS: BASOPHILS % 0.5 % (0.0-2.0); EOSINOPHILS % 0.5 % (0.0-5.0); HEMATOCRIT. 33.6 % (42.0-52.0); MEAN CORPUSCULAR HEMOGLOBIN 33.6 pg (28.0-32.0); MEAN CORPUSCULAR VOLUME 102.3 fL (80.0-94.0); MEAN PLATELET VOLUME 9.2 fl (7.4-10.4); MONOCYTES % 8.8 % (2.0-8.0); NEUTROPHILS % 79.2 % (40.0-76.0); PLATELET 150 x1000/uL (130-400); RED BLOOD CELL COUNT 3.28 mill/uL (4.7-6.1); RED CELL DISTRIBUTION WIDTH 24.6 % (11.6-14.6)
[2018-09-23] MEDS: INSULIN LISPRO 100 UNITS/ML SUBCUT SCH ×4 (08:10→21:00)
[2018-09-23] MEDS: SEVELAMER CARBONATE 800 MG TABLET PO SCH ×3 (08:58→18:58)
[2018-09-23] MEDS: FOLIC ACID/VITAMIN B COMP W-C TABLET PO SCH (08:58)
[2018-09-23] MEDS: FAMOTIDINE 20MG TABLET PO SCH (08:58)
[2018-09-23] MEDS: ASCORBIC ACID 500 MG TABLET PO SCH ×2 (08:58→21:50)
[2018-09-23] MEDS: AMIODARONE HCL 200 MG TABLET PO SCH ×2 (08:58→21:51)
[2018-09-24] VITALS: BP 162/70
[2018-09-24] MEDS: IPRATROPIUM/ALBUTEROL 0.5-3(2.5)MG/3ML NEB HHN SCH ×4 (01:55→13:14)
[2018-09-24 04:00] VITALS: BP 97/77
[2018-09-24] MEDS: BLOOD SUGAR DIAGNOSTIC STRIP TEST SCH ×3 (06:02→18:34)
[2018-09-24 08:00] VITALS: BP 149/64
[2018-09-24] MEDS: INSULIN LISPRO 100 UNITS/ML SUBCUT SCH ×3 (08:10→18:10)
[2018-09-24] MEDS: FOLIC ACID/VITAMIN B COMP W-C TABLET PO SCH (09:18)
[2018-09-24] MEDS: ASCORBIC ACID 500 MG TABLET PO SCH (09:19)
[2018-09-24] MEDS: SEVELAMER CARBONATE 800 MG TABLET PO SCH ×2 (09:19→12:48)
[2018-09-24] MEDS: FAMOTIDINE 20MG TABLET PO SCH (09:19)
[2018-09-24] MEDS: AMIODARONE HCL 200 MG TABLET PO SCH (09:19)
[2018-09-24 12:00] VITALS: BP 146/75
[2018-09-24 16:00] VITALS: BP 138/79
== END 2018-09-24 19:05 | DRG 853 ==
LOC: ER 18:46 → EDBEDREQ 21:37 → SUPCPDRO 22:08 → ENRESERV 22:56 → 5EST 22:56 → 3WST 09-01 14:52 → 7WST 09-10 23:55
PROVIDERS: ADMIT Internal Medicine; ATTEND Internal Medicine
PROC: 5A1D70Z Performance of Urinary Filtration, Intermittent, Less than 6 Hours Per Day (ICD-10-PCS; 2018-08-28)
PROC: 05H533Z Insertion of Infusion Device into Right Subclavian Vein, Percutaneous Approach (ICD-10-PCS; 2018-08-30)
PROC: B546ZZA Ultrasonography of Right Subclavian Vein, Guidance (ICD-10-PCS; 2018-08-30)
PROC: B5161ZA Fluoroscopy of Right Subclavian Vein using Low Osmolar Contrast, Guidance (ICD-10-PCS; 2018-08-30)
PROC: 5A1D70Z Performance of Urinary Filtration, Intermittent, Less than 6 Hours Per Day (ICD-10-PCS; 2018-08-30)
PROC: 04CL3ZZ Extirpation of Matter from Left Femoral Artery, Percutaneous Approach (ICD-10-PCS; principal; 2018-09-01)
PROC: 04CN3ZZ Extirpation of Matter from Left Popliteal Artery, Percutaneous Approach (ICD-10-PCS; 2018-09-01)
PROC: 047L3D1 Dilation of Left Femoral Artery with Intraluminal Device, using Drug-Coated Balloon, Percutaneous Approach (ICD-10-PCS; 2018-09-01)
PROC: 047N3D1 Dilation of Left Popliteal Artery with Intraluminal Device, using Drug-Coated Balloon, Percutaneous Approach (ICD-10-PCS; 2018-09-01)
PROC: 5A1D70Z Performance of Urinary Filtration, Intermittent, Less than 6 Hours Per Day (ICD-10-PCS; 2018-09-01)
PROC: 5A1D70Z Performance of Urinary Filtration, Intermittent, Less than 6 Hours Per Day (ICD-10-PCS; 2018-09-03)
PROC: 5A1D70Z Performance of Urinary Filtration, Intermittent, Less than 6 Hours Per Day (ICD-10-PCS; 2018-09-05)
PROC: 5A1D70Z Performance of Urinary Filtration, Intermittent, Less than 6 Hours Per Day (ICD-10-PCS; 2018-09-07)
PROC: 0Y6D0Z3 Detachment at Left Upper Leg, Low, Open Approach (ICD-10-PCS; 2018-09-09)
PROC: 06HM33Z Insertion of Infusion Device into Right Femoral Vein, Percutaneous Approach (ICD-10-PCS; 2018-09-09)
PROC: B54BZZA Ultrasonography of Right Lower Extremity Veins, Guidance (ICD-10-PCS; 2018-09-09)
PROC: 30233L1 Transfusion of Nonautologous Fresh Plasma into Peripheral Vein, Percutaneous Approach (ICD-10-PCS; 2018-09-09)
PROC: 30233K1 Transfusion of Nonautologous Frozen Plasma into Peripheral Vein, Percutaneous Approach (ICD-10-PCS; 2018-09-09)
PROC: 5A1D70Z Performance of Urinary Filtration, Intermittent, Less than 6 Hours Per Day (ICD-10-PCS; 2018-09-09)
PROC: 5A1D70Z Performance of Urinary Filtration, Intermittent, Less than 6 Hours Per Day (ICD-10-PCS; 2018-09-12)
PROC: 5A1D70Z Performance of Urinary Filtration, Intermittent, Less than 6 Hours Per Day (ICD-10-PCS; 2018-09-15)
PROC: 5A1D70Z Performance of Urinary Filtration, Intermittent, Less than 6 Hours Per Day (ICD-10-PCS; 2018-09-17)
PROC: 5A1D70Z Performance of Urinary Filtration, Intermittent, Less than 6 Hours Per Day (ICD-10-PCS; 2018-09-19)
PROC: 5A1D70Z Performance of Urinary Filtration, Intermittent, Less than 6 Hours Per Day (ICD-10-PCS; 2018-09-21)
PROC: 5A1D70Z Performance of Urinary Filtration, Intermittent, Less than 6 Hours Per Day (ICD-10-PCS; 2018-09-24)
DX: A41.9 Sepsis, unspecified organism (principal); N18.6 End stage renal disease; E43 Unspecified severe protein-calorie malnutrition; J96.00 Acute respiratory failure, unspecified whether with hypoxia or hypercapnia; G92 Toxic encephalopathy; I50.43 Acute on chronic combined systolic (congestive) and diastolic (congestive) heart failure; E11.52 Type 2 diabetes mellitus with diabetic peripheral angiopathy with gangrene; I13.2 Hypertensive heart and chronic kidney disease with heart failure and with stage 5 chronic kidney disease, or end stage renal disease; I42.0 Dilated cardiomyopathy; R47.01 Aphasia; M86.8X7 Other osteomyelitis, ankle and foot; T82.898A Other specified complication of vascular prosthetic devices, implants and grafts, initial encounter; E87.6 Hypokalemia; E83.51 Hypocalcemia; I48.0 Paroxysmal atrial fibrillation; I25.5 Ischemic cardiomyopathy; D63.8 Anemia in other chronic diseases classified elsewhere; E11.22 Type 2 diabetes mellitus with diabetic chronic kidney disease; S50.311A Abrasion of right elbow, initial encounter; X58.XXXA Exposure to other specified factors, initial encounter; E11.621 Type 2 diabetes mellitus with foot ulcer; E78.5 Hyperlipidemia, unspecified; N40.0 Benign prostatic hyperplasia without lower urinary tract symptoms; G35 Multiple sclerosis; E11.42 Type 2 diabetes mellitus with diabetic polyneuropathy; Y83.8 Other surgical procedures as the cause of abnormal reaction of the patient, or of later complication, without mention of misadventure at the time of the procedure; I25.10 Atherosclerotic heart disease of native coronary artery without angina pectoris; I48.2 Chronic atrial fibrillation; I95.3 Hypotension of hemodialysis; L89.150 Pressure ulcer of sacral region, unstageable; I70.202 Unspecified atherosclerosis of native arteries of extremities, left leg; F32.9 Major depressive disorder, single episode, unspecified; L97.519 Non-pressure chronic ulcer of other part of right foot with unspecified severity; E11.69 Type 2 diabetes mellitus with other specified complication; Z87.891 Personal history of nicotine dependence; Z79.4 Long term (current) use of insulin; Z95.1 Presence of aortocoronary bypass graft; Z99.2 Dependence on renal dialysis; Z79.84 Long term (current) use of oral hypoglycemic drugs; Z79.899 Other long term (current) drug therapy; Z79.82 Long term (current) use of aspirin; I25.2 Old myocardial infarction; Y93.89 Activity, other specified; Z89.421 Acquired absence of other right toe(s); Y92.89 Other specified places as the place of occurrence of the external cause; Y99.8 Other external cause status; Z68.23 Body mass index [BMI] 23.0-23.9, adult
CPT/HCPCS: 36415; 36569; 36600; 37225; 71045; 73630; 75635; 75710; 76881; 76937; 77001; 78582; 80048; 80061; 80162; 80202; 82040; 82375; 82550; 82553; 82805; 82962; 83036; 83605; 83880; 84134; 84439; 84443; 84484; 85027; 85347; 85379; 85651; 86140; 86850; 86900; 86920; 86927; 88307; 88311; 93005; 93306; 93970; 94640; 96365; 96366; 96367; 99285; A4216; A6261; A9558; C1725; C1760; C1769; C1885; C1887; C1893; C1894; J0282; J0690; J1160; J1170; J1200; J1642; J1644; J1650; J1815; J2250; J2270; J2543; J2704; J3010; J3370; J3490; J7030; J7050; J7060; J7620; J7626; P9017; Q9967

== ENCOUNTER 2018-10-01 13:17 | Inpatient (IN) | payer MEDICARE ==
[~2018-10-01] VITALS: Ht 172.7 cm; Wt 86.6 kg
[2018-10-01] MEDS ORDERED: NITROGLYCERIN 0.4MG TABLET SL SL PRN (13:45)
[2018-10-01 14:25] LABS: BASOPHILS % 0.7 % (0.0-2.0); EOSINOPHILS % 0.5 % (0.0-5.0); HEMOGLOBIN. 11.7 g/dL (14.0-18.0); LYMPHOCYTES % 15.6 % (20.0-50.0); MEAN CORPUSCULAR HEMOGLOBIN 32.9 pg (28.0-32.0); MEAN CORPUSCULAR VOLUME 103.8 fL (80.0-94.0); MEAN PLATELET VOLUME 9.7 fl (7.4-10.4); MONOCYTES % 13.3 % (2.0-8.0); NEUTROPHILS % 69.9 % (40.0-76.0); PLATELET 230 x1000/uL (130-400); RED BLOOD CELL COUNT 3.56 mill/uL (4.7-6.1)
[2018-10-01 14:36] LABS: CHLORIDE 96 mEq/L (98-107)
[2018-10-01] MEDS ORDERED: FUROSEMIDE 40MG/4ML VIAL IVP ONE (15:15)
[2018-10-01 15:46] LABS: PLATELET ESTIMATE NORMAL
[2018-10-01] MEDS ORDERED: ONDANSETRON HCL 4MG/2ML INJ IV PRN (18:15)
[2018-10-01] MEDS ORDERED: CLONIDINE 0.1MG TABLET PO PRN (18:15)
[2018-10-01 19:59] LABS: CREATINE KINASE MB FRACTION 3.1 ng/mL (0.5-3.6)
[2018-10-01 22:00] VITALS: BP 80/64
[2018-10-01 22:30] VITALS: BP 80/64
[2018-10-01] MEDS ORDERED: ENOXAPARIN 40MG/0.4ML SYR SUBCUT SCH (23:00)
[2018-10-01] MEDS: CARVEDILOL 3.125 MG TABLET PO SCH (23:00)
[2018-10-01] MEDS: NITROGLYCERIN OINT 1GM/INCH UDPKT TD SCH (23:13)
[2018-10-02] VITALS (20 sets, daily range): BP systolic 51–152; BP diastolic 31–76
[2018-10-02] MEDS: DILTIAZEM HCL 30MG TABLET PO SCH ×4 (06:00→18:25)
[2018-10-02] MEDS: NITROGLYCERIN OINT 1GM/INCH UDPKT TD SCH ×3 (06:09→21:41)
[2018-10-02 07:43] LABS: BASOPHILS % 0.8 % (0.0-2.0); EOSINOPHILS % 0.6 % (0.0-5.0); HEMATOCRIT. 33.2 % (42.0-52.0); HEMOGLOBIN. 10.8 g/dL (14.0-18.0); LYMPHOCYTES % 15.2 % (20.0-50.0); MEAN CORPUSCULAR HEMOGLOBIN 33.5 pg (28.0-32.0); MEAN CORPUSCULAR VOLUME 103.4 fL (80.0-94.0); MEAN PLATELET VOLUME 8.8 fl (7.4-10.4); MONOCYTES % 13.5 % (2.0-8.0); NEUTROPHILS % 69.9 % (40.0-76.0); PLATELET 171 x1000/uL (130-400); RED BLOOD CELL COUNT 3.21 mill/uL (4.7-6.1); RED CELL DISTRIBUTION WIDTH 21.2 % (11.6-14.6)
[2018-10-02] MEDS: CARVEDILOL 3.125 MG TABLET PO SCH ×2 (08:17→21:42)
[2018-10-02] MEDS: ASPIRIN 81MG TABLET PO SCH (08:18)
[2018-10-02] MEDS: CALCIUM ACETATE 667MG CAPSULE PO SCH ×3 (08:18→18:24)
[2018-10-02 14:33] LABS: HDL CHOLESTEROL 44 mg/dL (40-59); LDL CHOLESTEROL 43 mg/dL (5-100); T4 FREE 1.55 ng/dL (0.76-1.46)
[2018-10-02 16:22] LABS: INR 1.2
[2018-10-02 16:35] LABS: CREATINE KINASE MB FRACTION 2.9 ng/mL (0.5-3.6)
[2018-10-02] MEDS ORDERED: ENOXAPARIN 30MG/0.3ML SYR SUBCUT SCH (21:00)
[2018-10-02] MEDS: BLOOD SUGAR DIAGNOSTIC STRIP TEST SCH (21:43)
[2018-10-02] MEDS: ENOXAPARIN 80MG/0.8ML SYR SUBCUT SCH (21:43)
[2018-10-03] VITALS (10 sets, daily range): BP systolic 107–129; BP diastolic 42–56
[2018-10-03 02:13] LABS: CREATINE KINASE MB FRACTION 2.3 ng/mL (0.5-3.6)
[2018-10-03] MEDS: DILTIAZEM HCL 30MG TABLET PO SCH ×4 (05:35→18:00)
[2018-10-03] MEDS: NITROGLYCERIN OINT 1GM/INCH UDPKT TD SCH ×3 (05:35→21:42)
[2018-10-03 06:31] LABS: BASOPHILS % 0.9 % (0.0-2.0); EOSINOPHILS % 0.9 % (0.0-5.0); HEMATOCRIT. 33.6 % (42.0-52.0); HEMOGLOBIN. 10.9 g/dL (14.0-18.0); LYMPHOCYTES % 13.5 % (20.0-50.0); MEAN CORPUSCULAR HEMOGLOBIN 33.9 pg (28.0-32.0); MEAN CORPUSCULAR VOLUME 104.5 fL (80.0-94.0); MEAN PLATELET VOLUME 9.2 fl (7.4-10.4); MONOCYTES % 12.6 % (2.0-8.0); NEUTROPHILS % 72.1 % (40.0-76.0); PLATELET 152 x1000/uL (130-400); RED BLOOD CELL COUNT 3.22 mill/uL (4.7-6.1); RED CELL DISTRIBUTION WIDTH 20.9 % (11.6-14.6)
[2018-10-03 07:39] LABS: CREATINE KINASE MB FRACTION 2.6 ng/mL (0.5-3.6)
[2018-10-03] MEDS: BLOOD SUGAR DIAGNOSTIC STRIP TEST SCH ×4 (08:11→21:00)
[2018-10-03] MEDS: CARVEDILOL 3.125 MG TABLET PO SCH ×2 (08:17→21:42)
[2018-10-03] MEDS: ASPIRIN 81MG TABLET PO SCH (08:17)
[2018-10-03] MEDS: CALCIUM ACETATE 667MG CAPSULE PO SCH ×3 (08:18→18:17)
[2018-10-03] MEDS ORDERED: LIDOCAINE HCL/EPINEPHRINE 1%-EPI 1:100,000 20 ML VIAL INFIL NR (10:30)
[2018-10-03] MEDS: ACETAMINOPHEN 325MG TABLET PO PRN (13:29)
[2018-10-03] MEDS: ENOXAPARIN 80MG/0.8ML SYR SUBCUT SCH (21:42)
[2018-10-04] VITALS: BP 128/51
[2018-10-04] MEDS: DILTIAZEM HCL 30MG TABLET PO SCH ×4 (00:57→18:00)
[2018-10-04 04:00] VITALS: BP 120/52
[2018-10-04] MEDS: NITROGLYCERIN OINT 1GM/INCH UDPKT TD SCH ×4 (06:21→21:55)
[2018-10-04] MEDS: BLOOD SUGAR DIAGNOSTIC STRIP TEST SCH ×4 (06:30→20:58)
[2018-10-04 07:12] LABS: BASOPHILS % 0.8 % (0.0-2.0); EOSINOPHILS % 0.8 % (0.0-5.0); HEMATOCRIT. 35.2 % (42.0-52.0); HEMOGLOBIN. 11.3 g/dL (14.0-18.0); MEAN CORPUSCULAR HEMOGLOBIN 33.2 pg (28.0-32.0); MEAN CORPUSCULAR VOLUME 103.4 fL (80.0-94.0); MEAN PLATELET VOLUME 9.2 fl (7.4-10.4); MONOCYTES % 11.3 % (2.0-8.0); NEUTROPHILS % 69.1 % (40.0-76.0); PLATELET 176 x1000/uL (130-400); RED CELL DISTRIBUTION WIDTH 20.7 % (11.6-14.6)
[2018-10-04 08:00] VITALS: BP 133/51
[2018-10-04] MEDS: CARVEDILOL 3.125 MG TABLET PO SCH ×2 (10:00→21:51)
[2018-10-04] MEDS: CALCIUM ACETATE 667MG CAPSULE PO SCH ×3 (10:01→17:50)
[2018-10-04] MEDS: ASPIRIN 81MG TABLET PO SCH (10:01)
[2018-10-04 12:00] VITALS: BP 138/51
[2018-10-04 16:00] VITALS: BP 123/55
[2018-10-04 20:00] VITALS: BP 138/77
[2018-10-04] MEDS: ENOXAPARIN 80MG/0.8ML SYR SUBCUT SCH (21:51)
[2018-10-05] VITALS: BP 135/51
[2018-10-05] MEDS: DILTIAZEM HCL 30MG TABLET PO SCH ×3 (01:28→12:00)
[2018-10-05] MEDS: ACETAMINOPHEN 325MG TABLET PO PRN ×2 (03:10→23:20)
[2018-10-05 04:00] VITALS: BP 135/71
[2018-10-05] MEDS: CALCIUM ACETATE 667MG CAPSULE PO SCH ×3 (05:56→17:22)
[2018-10-05] MEDS: BLOOD SUGAR DIAGNOSTIC STRIP TEST SCH ×4 (06:01→21:00)
[2018-10-05] MEDS: NITROGLYCERIN OINT 1GM/INCH UDPKT TD SCH ×3 (07:27→22:52)
[2018-10-05 08:00] VITALS: BP 136/52
[2018-10-05] MEDS: ASPIRIN 81MG TABLET PO SCH (08:54)
[2018-10-05] MEDS: CARVEDILOL 3.125 MG TABLET PO SCH (08:54)
[2018-10-05 12:00] VITALS: BP 130/53
[2018-10-05 16:00] VITALS: BP 135/52
[2018-10-05 20:00] VITALS: BP 93/71
[2018-10-05] MEDS: CARVEDILOL 6.25 MG TABLET PO SCH (21:00)
[2018-10-05] MEDS: ENOXAPARIN 80MG/0.8ML SYR SUBCUT SCH (22:52)
[2018-10-06] VITALS: BP 135/49
[2018-10-06 04:00] VITALS: BP 136/55
[2018-10-06] MEDS: NITROGLYCERIN OINT 1GM/INCH UDPKT TD SCH ×3 (05:57→21:26)
[2018-10-06] MEDS: BLOOD SUGAR DIAGNOSTIC STRIP TEST SCH ×4 (06:45→21:26)
[2018-10-06] MEDS: CALCIUM ACETATE 667MG CAPSULE PO SCH ×3 (06:51→17:15)
[2018-10-06] MEDS: ACETAMINOPHEN 325MG TABLET PO PRN ×2 (06:51→17:24)
[2018-10-06 08:00] VITALS: BP 142/57
[2018-10-06] MEDS: ASPIRIN 81MG TABLET PO SCH (08:06)
[2018-10-06] MEDS: CARVEDILOL 6.25 MG TABLET PO SCH ×2 (08:06→21:22)
[2018-10-06 10:29] LABS: BASOPHILS % 0.6 % (0.0-2.0); EOSINOPHILS % 0.3 % (0.0-5.0); HEMATOCRIT. 33.6 % (42.0-52.0); LYMPHOCYTES % 17.4 % (20.0-50.0); MEAN CORPUSCULAR HEMOGLOBIN 33.7 pg (28.0-32.0); MEAN PLATELET VOLUME 8.8 fl (7.4-10.4); NEUTROPHILS % 70.7 % (40.0-76.0); PLATELET 184 x1000/uL (130-400); RED BLOOD CELL COUNT 3.26 mill/uL (4.7-6.1); RED CELL DISTRIBUTION WIDTH 20.7 % (11.6-14.6)
[2018-10-06 12:00] VITALS: BP 114/48
[2018-10-06] MEDS: LOSARTAN POTASSIUM 25 MG TABLET PO SCH (12:30)
[2018-10-06 15:44] VITALS: BP 100/51
[2018-10-06 20:00] VITALS: BP 128/51
[2018-10-06] MEDS: ENOXAPARIN 80MG/0.8ML SYR SUBCUT SCH (21:26)
[2018-10-06] MEDS ORDERED: ZOLPIDEM TARTRATE 5MG TABLET PO PRN (22:30)
[2018-10-07 04:00] VITALS: BP 131/51
[2018-10-07] MEDS: NITROGLYCERIN OINT 1GM/INCH UDPKT TD SCH ×2 (06:41→13:14)
[2018-10-07] MEDS: BLOOD SUGAR DIAGNOSTIC STRIP TEST SCH ×3 (06:41→17:36)
[2018-10-07 08:00] VITALS: BP 135/52
[2018-10-07] MEDS: LOSARTAN POTASSIUM 25 MG TABLET PO SCH (08:39)
[2018-10-07] MEDS: ASPIRIN 81MG TABLET PO SCH (08:40)
[2018-10-07] MEDS: CALCIUM ACETATE 667MG CAPSULE PO SCH ×3 (08:40→17:36)
[2018-10-07] MEDS: CARVEDILOL 6.25 MG TABLET PO SCH (08:40)
[2018-10-07 12:00] VITALS: BP 127/51
[2018-10-07] MEDS ORDERED: APIXABAN 2.5 MG TABLET PO SCH (12:30)
[2018-10-07 16:00] VITALS: BP 130/52
== END 2018-10-07 17:55 | DRG 264 ==
LOC: ER 13:58 → EDBEDREQ 15:08 → EDBEDREQTM 15:08 → ENRESERV 17:14 → CANRESERV 17:14 → 5EST 18:02 → EDBEDREQ 18:04 → EDBEDREQSVC 18:04 → EDBEDREQTM 18:05 → ENRESERV 18:49 → 5EST 10-02 08:28 → 6EST 10-03 17:35
PROVIDERS: ADMIT Internal Medicine; ATTEND Internal Medicine
PROC: 5A09357 Assistance with Respiratory Ventilation, Less than 24 Consecutive Hours, Continuous Positive Airway Pressure (ICD-10-PCS; 2018-10-01)
PROC: 0JB70ZZ Excision of Back Subcutaneous Tissue and Fascia, Open Approach (ICD-10-PCS; principal; 2018-10-03)
DX: I13.2 Hypertensive heart and chronic kidney disease with heart failure and with stage 5 chronic kidney disease, or end stage renal disease (principal); I50.23 Acute on chronic systolic (congestive) heart failure; J96.00 Acute respiratory failure, unspecified whether with hypoxia or hypercapnia; L89.153 Pressure ulcer of sacral region, stage 3; N18.6 End stage renal disease; E43 Unspecified severe protein-calorie malnutrition; G92 Toxic encephalopathy; I24.8 Other forms of acute ischemic heart disease; I82.412 Acute embolism and thrombosis of left femoral vein; E11.52 Type 2 diabetes mellitus with diabetic peripheral angiopathy with gangrene; R45.851 Suicidal ideations; Z66 Do not resuscitate; I42.9 Cardiomyopathy, unspecified; E78.5 Hyperlipidemia, unspecified; E11.22 Type 2 diabetes mellitus with diabetic chronic kidney disease; L89.309 Pressure ulcer of unspecified buttock, unspecified stage; D63.8 Anemia in other chronic diseases classified elsewhere; E11.42 Type 2 diabetes mellitus with diabetic polyneuropathy; E11.622 Type 2 diabetes mellitus with other skin ulcer; E87.8 Other disorders of electrolyte and fluid balance, not elsewhere classified; I48.0 Paroxysmal atrial fibrillation; N40.0 Benign prostatic hyperplasia without lower urinary tract symptoms; F32.9 Major depressive disorder, single episode, unspecified; I25.10 Atherosclerotic heart disease of native coronary artery without angina pectoris; I45.81 Long QT syndrome; I95.3 Hypotension of hemodialysis; Z99.2 Dependence on renal dialysis; Z87.891 Personal history of nicotine dependence; Z89.421 Acquired absence of other right toe(s); Z89.512 Acquired absence of left leg below knee; Z89.612 Acquired absence of left leg above knee; Z95.1 Presence of aortocoronary bypass graft; Z68.29 Body mass index [BMI] 29.0-29.9, adult; Z79.1 Long term (current) use of non-steroidal anti-inflammatories (NSAID); Z79.82 Long term (current) use of aspirin; Z79.899 Other long term (current) drug therapy
CPT/HCPCS: 36415; 71045; 78582; 80048; 80061; 82550; 82553; 82962; 83036; 83880; 84134; 84439; 84443; 84484; 85379; 93005; 93306; 93970; 94660; 96374; 97162; 97166; 97530; 99285; A9558; C1893; J1650; J1940; J3490; J7030